=== PATIENT | male | born 1975 ===

== ENCOUNTER 2016-07-01 15:22 | Inpatient (IN) | payer MEDICAID ==
[~2016-07-01] VITALS: Ht 175.3 cm; Wt 105.7 kg
[2016-07-01 18:00] VITALS: BP 153/96
[2016-07-01] MEDS ORDERED: hydrOXYzine (VISTARIL) 25 MG CAP PO PRN (18:00)
[2016-07-01] MEDS: QUEtiapine 100 MG (SEROquel) TAB IMMEDIATE RELEASE PO SCH (19:30)
[2016-07-01] MEDS: traZODone 100 MG (DESYREL) TAB PO SCH (19:30)
[2016-07-01] MEDS: cloNIDine 0.1 MG (CATAPRES) TAB PO SCH (19:30)
[2016-07-02 05:23] VITALS: BP 109/69
[2016-07-02 05:40] LABS: BASOPHILS % (AUTO) 0 % (0-10); EOSINOPHILS # (AUTO) 0.3 10^3/uL (0.0-0.3); EOSINOPHILS % (AUTO) 4 % (0-10); LYMPHOCYTES # (AUTO) 1.7 X 10^3 (1.0-4.0); LYMPHOCYTES % (AUTO) 22 % (12-44); MEAN CORPUSCULAR HEMOGLOBIN 29 PG (25-34); MEAN CORPUSCULAR HGB CONC 34 G/DL (32-36); MEAN CORPUSCULAR VOLUME 86 FL (80-99); MONOCYTES % (AUTO) 13 % (0-12); NEUTROPHILS # (AUTO) 4.8 X 10^3 (1.8-7.8); NEUTROPHILS % (AUTO) 62 % (42-75); PLATELET COUNT 247 10^3/uL (130-400); RED BLOOD COUNT 4.98 10^6/uL (4.35-5.85); RED CELL DISTRIBUTION WIDTH 16.7 % (10.0-14.5); WHITE BLOOD COUNT 7.8 10^3/uL (4.3-11.0)
[2016-07-02 06:12] LABS: ALANINE AMINOTRANSFERASE 44 U/L (0-55); ALBUMIN 3.6 G/DL (3.2-4.5); ANION GAP 8 MMOL/L (5-14); ASPARTATE AMINO TRANSFERASE 21 U/L (5-34); BILIRUBIN,TOTAL 0.4 MG/DL (0.1-1.0); BLOOD UREA NITROGEN 11 MG/DL (7-18); BUN/CREATININE RATIO 10; CALCIUM 8.9 MG/DL (8.5-10.1); CARBON DIOXIDE 23 MMOL/L (21-32); CHLORIDE 110 MMOL/L (98-107); CREATININE SERUM 1.05 MG/DL (0.60-1.30); GFR ESTIMATED > 60; GLUCOSE 103 MG/DL (70-105); POTASSIUM 3.5 MMOL/L (3.6-5.0); SODIUM 141 MMOL/L (135-145); TOTAL PROTEIN 6.4 G/DL (6.4-8.2)
[2016-07-02] MEDS ORDERED: CLON0.1T PO (07:40)
[2016-07-02] MEDS ORDERED: METO50TA2 PO (07:41)
[2016-07-02] MEDS ORDERED: ORPH100T PO (07:42)
[2016-07-02] MEDS ORDERED: QUET50TA PO (07:44)
[2016-07-02] MEDS ORDERED: QUET100T PO (07:44)
[2016-07-02] MEDS ORDERED: TRAM50TA2 PO (07:45)
[2016-07-02] MEDS ORDERED: TRAZ100T92 PO (07:46)
[2016-07-02] MEDS ORDERED: HYDR50CA PO (07:47)
[2016-07-02] MEDS ORDERED: SERT100T PO (07:48)
[2016-07-02] MEDS: cloNIDine 0.1 MG (CATAPRES) TAB PO SCH ×3 (09:11→21:08)
[2016-07-02] MEDS: meTOprolol TARTRATE 50 MG (LOPRESSOR) TAB PO SCH (09:11)
[2016-07-02] MEDS: SERTRALINE 100 MG (ZOLOFT) TAB PO SCH (09:11)
--- NOTE | 2016-07-02 10:54 | HISTORY AND PHYSICAL ---
DATE OF ADMISSION: 07/01/2016 CHIEF COMPLAINT: Difficulty with walking. HISTORY OF PRESENT ILLNESS: The patient is a 40-year-old male who has been independent and living with family in [place], [place], who was admitted to [facility] due to acute respiratory failure, found to be secondary to ethanol intoxication. The patient underwent withdrawal protocol. Was weaned from O2 and became more alert. He is now referred to Inpatient Rehabilitation Unit at [facility] prior to discharge home with family due to decline in his functional independence. He also has complaints of right shoulder pain. An MRI revealed a partial rotator cuff tear. He was also noted to have hypokalemia and electrolyte disturbance and correction was provided. Hospitalist discussed the case with Dr. Smith today prior to transfer. Currently, the patient requires assistance for his ADLs and mobility skills. He is requesting pain medication for his right shoulder. PAST MEDICAL HISTORY: 1. Hypertension. 2. Ethanol abuse. PAST SURGICAL HISTORY: Noncontributory. ALLERGIES: No known medication allergies. FAMILY HISTORY: Noncontributory. SOCIAL HISTORY: Works intermittently, lives with family. History of ethanol abuse. REVIEW OF SYSTEMS: Ten-point review of system is significant for a limited endurance. Right shoulder pain. MEDICATIONS: 1. Lopressor 50 mg p.o. daily. 2. Zoloft 100 mg p.o. daily. 3. Catapres 0.1 mg p.o. t.i.d. 4. Seroquel 100 mg p.o. at bedtime. 5. MED p.o. at bedtime. 6. Motrin 800 mg p.o. q.6 h. p.r.n. pain. 7. Tramadol 50 mg p.o. q.6 hours p.r.n. moderate pain. 8. Vistaril 50 mg p.o. t.i.d. p.r.n. itch. PHYSICAL EXAMINATION: Significant for a middle aged patient appearing his stated age, lying in bed complaining of right shoulder pain in no acute distress. VITAL SIGNS: Blood pressure is 153/96. Respirations 18, pulse 62. He is afebrile. O2 sat 96% on room air. HEENT: Vision, speech, hearing, grossly intact hours. No oral lesion is noted. NECK: Supple without mass. HEART: Regular rhythm. LUNGS: Clear. ABDOMEN: Soft, nontender. Bowel sounds present. EXTREMITIES: No lower edema. No calf tenderness. MUSCULOSKELETAL: The patient has tenderness over the right shoulder with limited active range of motion past 6 degrees flexion and abduction. He has functional active range of motion otherwise, distal right upper extremity, both lower extremities and left upper extremity. NEUROLOGIC: Sensation is grossly intact to touch. Cognition appears grossly intact. Strength functional at 4+/5 other than right shoulder due to rotator cuff tear. He has impaired dynamic standing balance. IMPRESSION: 1. Ambulatory dysfunction secondary to ethanol intoxication associated with respiratory failure requiring ventilation, ventilator short-term now, improving. 2. Partial tear right shoulder rotator cuff. 3. Hypokalemia, treated. 4. Hypertension, controlled with medication. PLAN: The patient will have a comprehensive program of inpatient rehabilitation with goal of maximizing level of functional dependence prior to discharge home with family. The patient will have PT/OT 90 minutes per day, each discipline, for gait strengthening, conditioning, ADLs, any patient/family/caregiver training necessary, balance training, modalities as needed for pain. Speech therapy do cognitive assessment and treat as indicated. It appears his encephalopathy from his ethanol withdrawal has fairly largely resolved. Rehabilitation nursing assist with bowel, bladder, skin care, medication administration, pain management. director of tax services to assist with discharge planning, community reentry. We will consult Dr. Peacock to assist with medical management of this out of town patient. Check labs in a.m. and follow-up with his PCP upon discharge; he apparently has [place] Medicaid. ESTIMATED LENGTH OF STAY: Two weeks. PROGNOSIS: Rehab prognosis appears good for goal of discharging home with family modified independent to supervision for ADLs and mobility skills. He will most likely need to have outpatient, follow-up regarding his right rotator cuff with orthopedics. DIET: Regular. CODE STATUS: Full code. POST ADMISSION PHYSICIAN ASSESSMENT: The preadmission screen agrees with the post admission assessment. The patient is a good candidate for inpatient rehabilitation. He appears to be well motivated to participate in 3 hours of therapy a day. He should be able tolerate 3 hours of therapy a day from a medical from a medical and orthopedic standpoint. He should benefit from 3 hours of therapy a day. He has a reasonable discharge plan, reasonable discharge rehabilitation goals and a supportive family. He has various comorbidities that need to be closely monitored with medications and treatments adjusted on a daily basis. He has various comorbidities that are his hypertension and pain management. Barriers to discharge for this patient who had been independent prior to this are for him to be modified independent to supervision for ADLs and mobility skills prior to discharge home with family so as to lessen the burden of the caregivers. Risks for this patient include: 1. Worsening pain. 2. Worsening rotator cuff tear. 3. Poorly controlled hypertension. 4. Fall. 5. Fracture. 6. DVT. 7. Pulmonary embolism. 8. Urinary retention. 9. UTI. 10. Respiratory infection. 11. Aspiration. We will utilize SCDs for DVT prophylaxis. Job ID: [id number] Dictated Date: 07/01/2016 19:21:06 Stamping Die Maker Date: 07/02/2016 10:39:22/kirsty LEE
--- NOTE | 2016-07-02 11:44 | Physical Therapy Evaluation ---
PT Evaluation-General Medical Diagnosis Admission Date Jul 01, 2016 at 17:17 Medical Diagnosis: difficulty with walking Onset Date: Jul 01, 2016 Therapy Diagnosis Therapy Diagnosis: impaired strength, balance, endurance Height/Weight Height (Feet): 5 Height (Inches): 9.00 Weight (Pounds): 230 Weight (Ounces): 8.0 Precautions Precautions/Isolations: Fall Prevention, Standard Precautions Referral Physician: Luis Reason for Referral: Evaluation/Treatment Medical History Pertinent Medical History: Alcoholism, HTN Additional Medical History MRI revealed a partial rotator cuff tear on the right side Current History Admitted to [facility] with acute respiratory failure due to alcohol intoxication. Reviewed History: Yes Social History Home: Single Level Current Living Status: Other Family Entry Into Home: Stairs With Railing PT Steps Into Home: 8 only one railing Prior/Core FIM Prior Level of Function Functional Gillespie Measure 0=Not Assessed/NA 4=Minimal Assistance 1=Total Assistance 5=Supervision or Setup 2=Maximal Assistance 6=Modified Gillespie 3=Moderate Assistance 7=Complete Gillespie Bed Mobility: 7 Transfers (B,C,W/C) (FIM): 7 Gait: 7 PT Evaluation-Current Subjective Patient in bathroom pre tx, agrees to PT when he is done. States he has pain of 8/10 in right shoulder, MRI shows he has a partial rotator cuff tear. Pt/Family Goals to get stronger and be able to go home Objective Patient Orientation: Person, Place, Situation ROM/Strength ROM Lower Extremities WNL Strenght Lower Extremities 4+/5 gross bilateral lower extremities Integumentary/Posture Bowel Incontinence: No Bladder Incontinence: No Neuromuscular (Tone, Coordination, Reflexes) WNL Sensory Vision: Functional Hearing: Functional Sensation Right Lower Extremit: Intact Sensation Left Lower Extremity: Intact Transfers Functional Gillespie Measure 0=Not Assessed/NA 4=Minimal Assistance 1=Total Assistance 5=Supervision or Setup 2=Maximal Assistance 6=Modified Gillespie 3=Moderate Assistance 7=Complete IndependenceIRFPAI Quality Coding Scale 6 Independent with activity with or without an assistive device 5 Patient requires set up or clean up by helper. Patient completes activity by themselves 4 Supervision or touching assist (CGA). Regina provide cues , steadying assist 3 The helper provides less than half the effort to complete the activity 2 The helper provides more than half the effort to complete the activity 1 Dependent. The helper does all the effort to complete an activity 7 Patient refused to complete or attempt activity 9 The patient did not perform the activity before the current illness or injury 88 Not attempted due to Medical conditions or safety concerns Transfers (B, C, W/C) (FIM): 5 Scootin Rollin Roll Left to Right (QC): 6 Supine to/from Sit: 6 Sit to/from Stand: 5 Sit to Lying (QC): 6 Lying to Sitting/Side of Bed(Q: 6 Sit to Stand (QC): 4 Car Transfer (QC): 88 Close supervision, he is unsteady but no LOB. Able to perform bed mobility with mod I and sit to stand and transfers with SBA Gait Does the Patient Walk?: Yes Mode of Locomotion: Walk Anticipated Mode of Locomotion: Walk Gait (FIM): 5 Walk 10 feet (QC): 4 Walk 50 ft with 2 Turns(QC): 4 Walk 150 ft (QC): 4 Walking 10ft/uneven surface-QC: 4 Distance: 500', 100' Gait Level of Assist: 5 Gait Persons Needed: 1 Gait Assistive Device: None Comments/Gait Description Patient needs close supervision, had one standing rest break. Could not ambulate as far after tx. Fatigued quickly. Has moments of unsteadiness but no ashley LOB. Able to ambulate 10' over an uneven surface like carpet with SBA and 50' with at least 2 turns of 90 degrees. Wheelchair Training Does the Pt Use a Wheelchair?: No Stairs Stairs (FIM): 2 #of Steps: 4 Level of Assist: 4 1 Step (curb) (QC): 4 4 Steps (QC): 4 12 Steps (QC): 88 Patient is unsteady but no LOB. He seemed pretty anxious on the stairs, required close guarding. Balance Sitting Static: Normal Sitting Dynamic: Normal Standing Static: Fair Standing Dynamic: Fair Picking up an Object (QC): 4 Treatment Nguyen Balance Scale Score 41/56, indicated he is at risk for a fall and needs an assistive device. He declines the use of a cane or walker. Assessment/Needs Patient has impairments in strength, balance, and endurance. He is at risk for a fall. He seems slow to respond and often a little confused. 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 Time Frame: Jul 23, 2016 Transfers (B,C,W/C) (FIM): 6 Sit to Lying (QC): 6 Lying-Sitting on Side/Bed(QC): 6 Sit to Stand (QC): 6 Rollin Roll Left to Right (QC): 6 Car Transfer (QC): 4 Does the Patient Walk: Yes Gait (FIM): 6 Distance: 600' Walk 10 feet (QC): 6 Walk 10ft-Uneven Surface(QC): 6 Walk 50ft with 2 Turns (QC): 6 Walk 150 ft (QC): 6 Gait Assistive Device: Cane Single Point Stairs (FIM): 5 # of Steps: 12 1 Step (curb) (QC): 4 4 Steps (QC): 4 12 Steps (QC): 4 Stairs Level Of Assist: 5 Picking up an Object (QC): 4 PT Plan Problem List Problem List: Activity Tolerance, Functional Strength, Safety, Balance, Gait, Transfer Treatment/Plan Treatment Plan: Continue Plan of Care Treatment Plan: Bed Mobility, Education, Functional Activity Claudy, Functional Strength, Group Therapy, Gait, Safety, Therapeutic Exercise, Transfers Treatment Duration: Jul 23, 2016 # of days/week 5-6 Visits Per Week: 10-11 Minutes/Day (M-F): 60-90 Minutes/Day (Sat/Marie): 15-30 Pt/Family Agrees w/Plan: Yes Safety Risks/Education Patient Education: Gait Training, Transfer Techniques, Steps, Safety Issues Teaching Recipient: Patient Teaching Methods: Demonstration, Discussion Response to Teaching: Reinforcement Needed Discharge Recommendations Plan Patient will perform bed mobility and transfer training, balance and endurance training, functional strengthening, stair training, gait training, education, to improve functional mobility and independence at home. Therapy D/C Recommendations: Home w/ Family Support Time/GCodes Time In: 1100 Time Out: 1145 Total Billed Treatment Time: 45 Total Billed Treatment 1 visit EVL 15 min NM 15 min GT 15 min MATTHEW EUGENE PT Jul 02, 2016 11:44
--- NOTE | 2016-07-02 13:00 | Occupational Therapy Eval ---
OT Evaluation-General/PLF Medical Diagnosis Admission Date Jul 01, 2016 at 17:17 Medical Diagnosis: difficulty with walking Onset Date: Jul 01, 2016 Therapy Diagnosis Therapy Diagnosis: decreased self care skills Height/Weight Height (Feet): 5 Height (Inches): 9.00 Weight (Pounds): 230 Weight (Ounces): 8.0 Precautions Precautions/Isolations: Fall Prevention, Standard Precautions Safety Interventions: None Referral Physician: Luis Medical History Pertinent Medical History: Alcoholism, HTN Reviewed History: Yes Social History Home: Single Level Current Living Status: Other Family (Pt states he will be staying with mother at d/c) Entry Into Home: Stairs With Railing Steps Into Home: 8 ADL-Prior Level of Function DME/Equipment: Shower Drive Self: No OT Current Status Subjective Pt in bed, agrees to therapy. Pt reports 8/10 pain in right shoulder Mental Status/Objective Patient Orientation: Person, Place, Time (able to state day, month, and year) Current Glasses/Contacts: No Hearing Aids: No Dentures/Partials: No Hand Dominance: Right Upper Extremity ROM Pt has decreased shoulder ROM on right secondary to rotator cuff injury. Remainder WFL. Upper Extremity Coordination Intact Upper Extremity Sensation Intact per pt report. ADL-Treatment ADL-Current Pt supine to sit with supervision. Agrees to shower. Sit to stand with SBA. Pt declined to use FWW for mobility. Gait to restroom with supervision. Transfer to walk in shower with SBA using grab bars for balance and safety. Seated bathing completed using hand held shower. Pt able to wash all areas with SBA, but had one mild LOB when drying foot, requiring CGA to correct. Don pullover shirt with set up. Pt donned underwear and pants with supervision for balance. Donned socks and slip on shoes with set up. Pt demonstrated ability to perform toilet transfer with SBA. Stood at sink for grooming with SBA. Combed hair and brushed teeth with SBA. Pt in bed with needs met after session. Functional [place] Measure 0=Not Assessed/NA 4=Minimal Assistance 1=Total Assistance 5=Supervision or Setup 2=Maximal Assistance 6=Modified [place] 3=Moderate Assistance 7=Complete IndependenceIRFPAI Quality Coding Scale 6 Independent with activity with or without an assistive device 5 Patient requires set up or clean up by helper. Patient completes activity by themselves 4 Supervision or touching assist (CGA). [place] provide cues , steadying assist 3 The helper provides less than half the effort to complete the activity 2 The helper provides more than half the effort to complete the activity 1 Dependent. The helper does all the effort to complete an activity 7 Patient refused to complete or attempt activity 9 The patient did not perform the activity before the current illness or injury 88 Not attempted due to Medical conditions or safety concerns Grooming (FIM): 5 Oral Hygiene (QC): 4 Bathing (FIM): 4 (CGA when drying foot) Shower/Bathe Self (QC): 4 (CGA) Upper Body Dressing (FIM): 5 Upper Body Dressing (QC): 5 Lower Body Dressing (FIM): 5 Lower Body Dressing (QC): 4 On/Off Footwear (QC): 5 Toilet/Commode Transfer (FIM): 5 Toilet Transfer (QC): 4 Shower Transfer (FIM): 5 OT Short Term Goals Short Term Goals 1=Demonstrate adherence to instructed precautions during ADL tasks. 2=Patient will verbalize/demonstrate understanding of assistive devices/ modifications for ADL. 3=Patient will improve strength/tolerance for activity to enable patient to perform ADL's. OT Mcfp Goals Mcfp Goals Time Frame: Jul 23, 2016 Eating (FIM): 6 Eating (QC): 6 Oral Hygiene (QC): 6 Grooming(FIM): 6 Bathing(FIM): 6 Shower/Bathe Self (QC): 6 Upper Body Dressing(FIM): 6 Upper Body Dressing (QC): 6 Lower Body Dressing(FIM): 6 Lower Body Dressing (QC): 6 On/Off Footwear (QC): 6 Toileting(FIM): 6 Toileting Hygiene (QC): 6 Toilet/Commode Transfer(FIM): 6 Toilet/Commode Transfer (QC): 6 Shower Transfer(FIM): 6 Additional Goals: 1-Demonstrate ADL Tasks, 2-Verbalize Understanding, 3- ImproveStrength/Claudy 1=Demonstrate adherence to instructed precautions during ADL tasks. 2=Patient will verbalize/demonstrate understanding of assistive devices/ modifications for ADL. 3=Patient will improve strength/tolerance for activity to enable patient to perform ADL's. Goals established to promote increased functional performance and allow safe return home. OT Education/Plan Problem List/Assessment Assessment: Decreased Activ Tolerance, Decreased UE Strength, Dependent Transfers, Impaired Funct Balance, Impaired Self-Care Skills Pt demonstrates mildly decreased mobility, strength, and activity tolerance. Pt to benefit from skilled OT intervention for ADL training, transfers, strengthening, and home safety education to maximize level of independence and allow safe discharge. Discharge Recommendations Plan/Recommendations: Continue POC Treatment Plan/Plan of Care Treatment,Training & Education: Yes Patient would benefit from OT for education, treatment and training to promote independence in ADL's, mobility, safety and/or upper extremity function for ADL' s. Plan of Care: ADL Retraining, Functional Mobility, Group Exercise/Act as Ind, UE Funct Exercise/Act, UE Neuromus Re-Ed/Coord Treatment Duration: Jul 23, 2016 # of days/week 5-6 Minutes/Day (M-F): 60-90 Minutes/Day (Sat/Marie): PRN Agreement: Yes Rehab Potential: Fair Time/GCodes Start Time: 14:17 Stop Time: 14:53 Total Time Billed (hr/min): 36 Billed Treatment Time 1 visit, EVL(15minutes), ADLx3(45minutes) ELENA LAU OT Jul 02, 2016 13:00
--- NOTE | 2016-07-02 13:42 | PM & R (SOAP) Progress Note ---
Subjective Subjective/Events-last exam Patient was seen in his room this afternoon patient c/o poorly controlled Rt Shoulder pain Will add Voltaran gel and Lortab See orders.Patient SBA for transfers. Objective Exam Last Set of Vital Signs Vital Signs Date Time Temp Pulse Resp B/P Pulse Ox O2 Delivery O2 Flow Rate FiO2 07/02/16 09:00 Room Air 07/02/16 05:23 97.7 53 18 109/69 96 Capillary Refill : I&O Bad tableGeneral: Alert, Oriented X3, Cooperative, No Acute Distress HEENT: Atraumatic, PERRLA, EOMI, Mucous Memb Moist/Blanket Neck: Supple, No JVD Lungs: Clear to Auscultation Heart: Regular Rate Abdomen: Normal Bowel Sounds, Soft, No Tenderness Extremities: No Edema Neuro: Other (Tender rt shoulder with Limited AROM in flex and abdustion) Results Lab Laboratory Tests 07/02/16 05:20: Alanine Aminotransferase (ALT/SGPT) 44, Albumin 3.6, Alkaline Phosphatase 67, Anion Gap 8, Aspartate Amino Transf (AST/SGOT) 21, BUN/Creatinine Ratio 10, Basophils # (Auto) 0.0, Basophils (%) (Auto) 0, Blood Urea Nitrogen 11, Calcium Level 8.9, Carbon Dioxide Level 23, Chloride Level 110H, Creatinine 1.05, Eosinophils # (Auto) 0.3, Eosinophils (%) (Auto) 4, Estimat Glomerular Filtration Rate > 60, Glucose Level 103, Hematocrit 43, Hemoglobin 14.5, Lymphocytes # (Auto) 1.7, Lymphocytes (%) (Auto) 22, Mean Corpuscular Hemoglobin 29, Mean Corpuscular Hemoglobin Concent 34, Mean Corpuscular Volume 86, Mean Platelet Volume 10.0, Monocytes # (Auto) 1.0, Monocytes (%) (Auto) 13H , Neutrophils # (Auto) 4.8, Neutrophils (%) (Auto) 62, Platelet Count 247, Potassium Level 3.5L, Red Blood Count 4.98, Red Cell Distribution Width 16.7H, Sodium Level 141, Total Bilirubin 0.4, Total Protein 6.4, White Blood Count 7.8 Assessment/Plan Assessment General debil secondary to encephalopathy related ETOH intoxication. RT Rotator cuff tear Plan Continue PT/OT Pain Management-see orders Team Conference tomorrow [facility] consult-see orders EDUARDO TOM MD Jul 02, 2016 13:42
[2016-07-02] MEDS: HYDROcodone/APAP 10 MG/325 MG (LORTAB) TAB PO PRN ×3 (13:53→23:06)
[2016-07-02] MEDS ORDERED: KCL 20 MEQ TAB (K-DUR) PO NR (14:30)
--- NOTE | 2016-07-02 14:52 | ST Cognitive Linguistic Eval ---
Speech Evaluation-General Medical Diagnosis Acute Encephalopathy Onset Date: Jul 01, 2016 Therapy Diagnosis Therapy Diagnosis: Mild Cognitive Impairment Precautions Precautions/Isolations: Fall Prevention, Standard Precautions Referral Referring Physician: Dr. Manuel Smith Reason for Referral: Evaluation/Treatment Cognitive Screen Medical History Pertinent Medical History: Alcoholism, HTN Reviewed History: Yes Social History Current Living Status: Other Family (Pt states he will be staying with mother at d/c) Speech PLF-Current Status Prior Level of Function The patient reported "memory problems" directly following his hospitalization, however, reported a recent return to baseline function. The patient denied additional speech, language, or cognition challenges. Subjective The patient was recently admitted to [facility] following acute encephalopathy. The patient greeted the clinician appropriately and agreed to participate in the cognitive evaluation on this date. To note, the patient demonstrates a consistent flat affect. Language Eval: Auditory Comprehends Simple Yes/No Ques: Mild Indent/Objects Multiple Herrmann: Functional Ident/Pics in Multiple Herrmann: Functional Follows 1-Step Commands: Functional Follows Complex Directions: Mild Follows General Conversations: Mild (The patient demonstrated a mild to moderate reponse delay to simple questions.) Language Eval: Verbal Language Completes Spontaneous Greeting: Functional Produces Auto, Serial Info: Functional Imitates Simple Words/Phrases: Functional Word Finding: Functional Requests Basic Needs: Functional States Basic Personal Info: Mild Expresses Complex Ideas: Mild Cognitive Patient Orientation The patient was oriented to self, location, day of week, month, and date. Objective Cognitive Domain Attention: Mild Memory: Mild Problem Solving: Mild Executive Functions: Mild Objective Formal/Standardized Tests Schuyler Cognitive Assessment (MoCA) Version One: The patient demonstrated a score of +19/22 correlating to a mild cognitive impairment. Impression Ashley Cognitive Assessment (MoCA) Version One: The patient demonstrated a score of +19/22 correlating to a mild cognitive impairment. The patient demonstrated deficits in auditory comprehension, memory, attention, and problem solving. Communication/Social Cognition Comprehension: 4 Expression: 5 Social Interaction: 5 Problem Solvin Memory: 4 Speech Patient Assess Expression of Ideas/Wants: Exhibits (3) Understanding Vebal Content: Usually Understands (3) Brief Interview-Mental Status: Yes Repetition of Three Words: Three (3) Temporal Orientation: Year: Correct (3) Temporal Orientation: Month: Accurate within 5 days(2) Temporal Orientation: Day: Correct (1) Recall : Wear to say "Sock": Yes, no cue required (2) Recall : Color: Yes, no cue required (2) Recall : Bed: Yes, no cue required (2) Speech Short Term Goals Short Term Goals Short Term Goals 1. The patient will demonstrate 90% accuracy with safety problem solving, independently. 2. The patient will demonstrate and recall three functional memory strategies for use at home. Time Frame-STG: Two Weeks Speech Penitentiary Goals Penitentiary Goals 1. The patient will demonstrate improved cognition for increased function and safety with ADL's in the least restrictive setting. Time Frame: Three Weeks Comprehension: 5 Expression: 5 Social Interaction: 5 Problem Solvin Memory: 5 Speech-Plan Treatment Plan Speech Therapy Treatment Plan: Continue Plan of Care Skilled cognitive therapy to focus on functional memory strategies and problem solving. Treatment Duration: Jul 23, 2016 # of days/week Three Visits Per Week: Three Rehab Potential: Fair Safety Risks/Education Teaching Recipient: Patient Teaching Methods: Discussion Response to Teaching: Verbalize Understanding, Reinforcement Needed Education Topics Provided: Plan of Care Time Speech Therapy Time In: 10:45 Speech Therapy Time Out: 11:00 Total Billed Time: 15 Billed Treatment Time 1, AKSHAT MCDOWELL Jul 02, 2016 14:52
--- NOTE | 2016-07-02 15:19 | Occupational Ther Daily Note ---
OT Current Status-Daily Note Subjective Pt alert, lying in bed. Pt agreed to therapy. No c/o pain. Mental Status/Objective Patient Orientation: Person, Place, Time, Situation Functional [place] Measure 0=Not Assessed/NA 4=Minimal Assistance 1=Total Assistance 5=Supervision or Setup 2=Maximal Assistance 6=Modified [place] 3=Moderate Assistance 7=Complete [place] ADL-Treatment Functional [place] Measure 0=Not Assessed/NA 4=Minimal Assistance 1=Total Assistance 5=Supervision or Setup 2=Maximal Assistance 6=Modified [place] 3=Moderate Assistance 7=Complete IndependenceIRFPAI Quality Coding Scale 6 Independent with activity with or without an assistive device 5 Patient requires set up or clean up by helper. Patient completes activity by themselves 4 Supervision or touching assist (CGA). [place] provide cues , steadying assist 3 The helper provides less than half the effort to complete the activity 2 The helper provides more than half the effort to complete the activity 1 Dependent. The helper does all the effort to complete an activity 7 Patient refused to complete or attempt activity 9 The patient did not perform the activity before the current illness or injury 88 Not attempted due to Medical conditions or safety concerns Other Treatment Pt was able to go from supine to sitting EOB by self using bed rails. Pt ambulated with CGA to therapy gym. Pt completed arm bike 15 min at 3 crowder resistance for strength and activity tolerance for daily functional tasks. Pt did c/o pain with R shldr movement on arm bike. Pt had a difficulty time to rotated the arm bike fast enough to keep the clock moving. OT showed pt RPMs and instructed pt to keep it at 20 RPMs to keep the clock going, pt was able to complete without breaks. Pt then completed fine motor tasks to strengthen hands and fingers without difficulty. Pt ambulated back to room with SBA. After therapy, pt sitting in recliner with call light/phone in reach. All needs met in room. OT Short Term Goals Short Term Goals 1=Demonstrate adherence to instructed precautions during ADL tasks. 2=Patient will verbalize/demonstrate understanding of assistive devices/ modifications for ADL. 3=Patient will improve strength/tolerance for activity to enable patient to perform ADL's. OT Shelter Goals Line Patrolman Goals Time Frame: Jul 23, 2016 Eating (FIM): 6 Eating (QC): 6 Oral Hygiene (QC): 6 Grooming(FIM): 6 Bathing(FIM): 6 Shower/Bathe Self (QC): 6 Upper Body Dressing(FIM): 6 Upper Body Dressing (QC): 6 Lower Body Dressing(FIM): 6 Lower Body Dressing (QC): 6 On/Off Footwear (QC): 6 Toileting(FIM): 6 Toileting Hygiene (QC): 6 Toilet/Commode Transfer(FIM): 6 Toilet/Commode Transfer (QC): 6 Shower Transfer(FIM): 6 Comprehension(FIM): 5 Expression (FIM): 5 Social Interaction(FIM): 5 Problem Solving(FIM): 5 Memory(FIM): 5 Additional Goals: 1-Demonstrate ADL Tasks, 2-Verbalize Understanding, 3- ImproveStrength/Claudy 1=Demonstrate adherence to instructed precautions during ADL tasks. 2=Patient will verbalize/demonstrate understanding of assistive devices/ modifications for ADL. 3=Patient will improve strength/tolerance for activity to enable patient to perform ADL's. OT Education/Plan Problem List/Assessment Pt demonstrates mildly decreased mobility, strength, and activity tolerance. Pt to benefit from skilled OT intervention for ADL training, transfers, strengthening, and home safety education to maximize level of independence and allow safe discharge. Discharge Recommendations Plan/Recommendations: Continue POC Treatment Plan/Plan of Care Patient would benefit from OT for education, treatment and training to promote independence in ADL's, mobility, safety and/or upper extremity function for ADL' s. Plan of Care: ADL Retraining, Functional Mobility, Group Exercise/Act as Ind, UE Funct Exercise/Act, UE Neuromus Re-Ed/Coord Treatment Duration: Jul 23, 2016 Minutes/Day (M-F): 60-90 Minutes/Day (Sat/Amrie): PRN Agreement: Yes Rehab Potential: Fair Time/GCodes Start Time: 13:00 Stop Time: 13:30 Total Time Billed (hr/min): 30 Billed Treatment Time 1 visit-EX 2 (30 min) REYNA TORREZ Jul 02, 2016 15:19
--- NOTE | 2016-07-02 15:45 | Physical Therapy Daily Note ---
PT Daily Note-Current Subjective Patient in bed pre tx, agrees to PT, pleasant and cooperative. Pain Numeric Pain Scale: 6 Location: Right Location Body Site: Shoulder Appearance Patient sitting EOB post tx, has nurse call, phone, tray, all needs met. Mental Status Patient Orientation: Normal For Age Transfers Functional [place] Measure 0=Not Assessed/NA 4=Minimal Assistance 1=Total Assistance 5=Supervision or Setup 2=Maximal Assistance 6=Modified [place] 3=Moderate Assistance 7=Complete IndependenceIRFPAI Quality Coding Scale 6 Independent with activity with or without an assistive device 5 Patient requires set up or clean up by helper. Patient completes activity by themselves 4 Supervision or touching assist (CGA). [place] provide cues , steadying assist 3 The helper provides less than half the effort to complete the activity 2 The helper provides more than half the effort to complete the activity 1 Dependent. The helper does all the effort to complete an activity 7 Patient refused to complete or attempt activity 9 The patient did not perform the activity before the current illness or injury 88 Not attempted due to Medical conditions or safety concerns Transfers (B, C, W/C) (FIM): 5 Sit to/from Stand: 5 no LOB Gait Training Gait (FIM): 5 Distance: 600', 1200' Gait Level of Assist: 5 Gait Persons Needed: 1 Gait Assistive Device: None occasional moments of unsteadiness but no LOB Exercises NuStep Minutes: 15 NuStep Workload: 5 Neuromuscular tandem walking, sidestepping, backwards walking Assessment Current Status: Fair Progress patient seems more steady this afternoon, better balance PT Short Term Goals Short Term Goals Time Frame: Jul 09, 2016 Gait (FIM): 5 Gait Distance Comment: 600' Gait Level of Assist: 5 Gait Assistive Device: Cane Single Point Stairs (FIM): 2 # of Steps: 4 Stairs Level of Assist: 5 PT Intermediate Goals Summer Counselor Goals PT Intermediate Goals Time Frame: Jul 23, 2016 Transfers (B,C,W/C) (FIM): 6 Sit to Lying (QC): 6 Lying-Sitting on Side/Bed(QC): 6 Sit to Stand (QC): 6 Rollin Roll Left to Right (QC): 6 Car Transfer (QC): 4 Does the Patient Walk: Yes Gait (FIM): 6 Distance: 600' Walk 10 feet (QC): 6 Walk 10ft-Uneven Surface(QC): 6 Walk 50ft with 2 Turns (QC): 6 Walk 150 ft (QC): 6 Gait Assistive Device: Cane Single Point Stairs (FIM): 5 # of Steps: 12 1 Step (curb) (QC): 4 4 Steps (QC): 4 12 Steps (QC): 4 Stairs Level Of Assist: 5 Picking up an Object (QC): 4 PT Plan Problem List Problem List: Activity Tolerance, Functional Strength, Safety, Balance, Gait, Transfer Treatment/Plan Treatment Plan: Continue Plan of Care Treatment Plan: Bed Mobility, Education, Functional Activity Claudy, Functional Strength, Group Therapy, Gait, Safety, Therapeutic Exercise, Transfers Treatment Duration: Jul 23, 2016 Visits Per Week: 10-11 Minutes/Day (M-F): 60-90 Minutes/Day (Sat/Marie): 15-30 Safety Risks/Education Patient Education: Gait Training, Transfer Techniques, Safety Issues Teaching Recipient: Patient Teaching Methods: Demonstration, Discussion Response to Teaching: Reinforcement Needed Time/GCodes Time In: 1500 Time Out: 1545 Total Billed Treatment Time: 45 Total Billed Treatment 1 visit GT 15 min EX 15 min NM 15 min MATTHEW EUGENE PT Jul 02, 2016 15:44
[2016-07-02] MEDS: DICLOFENAC 1% GEL 100 GM (VOLTAREN) TUBE TOP SCH ×2 (17:47→20:22)
[2016-07-02 18:17] VITALS: BP 135/87
--- NOTE | 2016-07-02 19:24 | Consultation ---
History of Present Illness History of Present Illness Patient Consulted On(casimiro/time) 07/02/16 19:19 Date of Admission History of Present Illness patient came to rehabilitation from [facility] in [place]. Patient had an ethanol intoxication. History of depression. History of homelessness. Right shoulder pain. Tobacco usage. Alcohol poisoning. Acute encephalopathy. Elevated liver enzymes. Acute respiratory failure with hypoxemia and hypercapnia. Sepsis. Aspiration pneumonia. Family history father diabetic and heart disease. Allergies and Home Medications Allergies Coded Allergies: No Known Allergies (Verified Allergy, Unknown, 07/01/16) Home Medications Clonidine HCl 0.1 Mg Tablet 0.1 MG PO TID (Reported) Hydroxyzine Pamoate 50 Mg Capsule 50 MG PO TID (Reported) Metoprolol Tartrate 50 Mg Tablet 50 MG PO DAILY (Reported) Orphenadrine Citrate 100 Mg Tablet.er 100 MG PO BID (Reported) Quetiapine Fumarate 50 Mg Tablet 50 MG PO HS (Reported) Quetiapine Fumarate 100 Mg Tablet 100 MG PO HS (Reported) Sertraline HCl 100 Mg Tablet 100 MG PO DAILY (Reported) Tramadol HCl 50 Mg Tablet 50 MG PO Q6H (Reported) Trazodone HCl 100 Mg Tablet 100 MG PO HS (Reported) Past Nmgjssr-[id number]-Jgmfkc Hx Patient Social History Alcohol Use: Regular Use Recreational Drug Use: No Smoking Status: Current Everyday Smoker Type Used: Cigarettes Recent Foreign Travel: No Contact w/Someone Who Travel: No Recent Infectious Disease Expo: No Recent Hopitalizations: Yes Physical Abuse Screen: No Sexual Abuse: No Immunizations Up To Date Date of Influenza Vaccine: Jun 30, 2016 Seasonal Allergies Seasonal Allergies: No Surgeries Surgeries: Orthopedic Cardiovascular Cardiac Disorders: Hypertension Psychosocial Behavioral Health Disorders: Anxiety Blood Transfusions Adverse Reaction to a Blood Tr: No Family Medical History Family Medial History: Patient reports no known family medical history. Review of Systems-General Constitutional: weakness EENTM: no symptoms reported Respiratory: no symptoms reported Cardiovascular: other (hypertension) Gastrointestinal: no symptoms reported Genitourinary: no symptoms reported Physical Exam-General Problems Physical Exam Vital Signs Vital Sign - Last 12Hours 07/01/16 18:00 Temp 98.1 Pulse 62 Resp 18 B/P 153/96 Pulse Ox 96 O2 Delivery Room Air Capillary Refill : General Appearance: WD/WN no apparent distress Eyes: Bilateral Eye Normal Inspection HEENT: normal ENT inspection Neck: full range of motion normal inspection Respiratory: chest non-tender lungs clear normal breath sounds no respiratory distress no accessory muscle use Cardiovascular: regular rate, rhythm no murmur Assessment/Plan Assessment/Plan Admission Diagnosis/Plan alcohol poisoning. Acute encephalopathy. Elevated liver enzymes. Acute respiratory failure with hypoxemia and hypercapnia. Sepsis. Aspiration pneumonia. History of depression. Right shoulder pain Clinical Quality Measures DVT/VTE Risk/Contraindication: Risk Factor Score Per Nursin RFS Level Per Nursing on Admit: 1=Low/No VTE PPX CORDELL ZAVALA DO Jul 02, 2016 19:24
[2016-07-02 21:05] VITALS: BP 124/71
[2016-07-02] MEDS: ORPHENADRINE 100 MG PO SCH (21:07)
[2016-07-02] MEDS: QUEtiapine 100 MG (SEROquel) TAB IMMEDIATE RELEASE PO SCH (21:08)
[2016-07-02] MEDS: traZODone 100 MG (DESYREL) TAB PO SCH (21:08)
[2016-07-03] MEDS: HYDROcodone/APAP 10 MG/325 MG (LORTAB) TAB PO PRN ×4 (04:43→21:01)
[2016-07-03 06:00] VITALS: BP 90/56
--- NOTE | 2016-07-03 08:26 | Progress Note (SOAP) ---
Subjective Subjective/Events-last exam patient states she's feeling better today. Patient was able to do the physical therapy and occupational therapy yesterday. Patient's right shoulder hurts Objective Exam Vital Signs Date Time Temp Pulse Resp B/P Pulse Ox O2 Delivery O2 Flow Rate FiO2 07/03/16 06:00 97.6 55 16 90/56 95 Room Air 07/02/16 21:05 66 124/71 07/02/16 21:00 Room Air 07/02/16 18:17 97.8 62 16 135/87 96 07/02/16 09:00 Room Air I & O 07/03/16 07:00 Intake Total 1880 ml Balance 1880 ml Capillary Refill : General Appearance: No Apparent Distress WD/WN HEENT: Normal ENT Inspection Neck: Normal Inspection Respiratory: Chest Non Tender Lungs Clear Normal Breath Sounds No Accessory Muscle Use No Respiratory Distress Assessment/Plan Assessment/Plan Assess & Plan/Chief Complaint alcohol poisoning. Acute encephalopathy. Elevated liver enzymes. Acute respiratory failure with hypoxemia and hypercapnia. Sepsis. Aspiration pneumonia. History of depression. Right shoulder pain. . . Alcohol poisoning. Acute encephalopathy. Elevated liver enzymes resolved. Acute respiratory failure resolved. Hypoxemia resolved Diagnosis/Problems: Clinical Quality Measures DVT/VTE Risk/Contraindication: Risk Factor Score Per Nursin RFS Level Per Nursing on Admit: 1=Low/No VTE PPX CORDELL ZAVALA DO Jul 03, 2016 08:26
[2016-07-03] MEDS: meTOprolol TARTRATE 50 MG (LOPRESSOR) TAB PO SCH (08:54)
[2016-07-03] MEDS: cloNIDine 0.1 MG (CATAPRES) TAB PO SCH ×3 (08:54→21:01)
[2016-07-03] MEDS: SERTRALINE 100 MG (ZOLOFT) TAB PO SCH (08:55)
[2016-07-03] MEDS: IBUPROFEN 800 MG (MOTRIN) TAB PO PRN (08:55)
--- NOTE | 2016-07-03 08:55 | Occupational Ther Daily Note ---
OT Current Status-Daily Note Subjective Pt alert, lying in bed. Pt agreed to therapy. Declined taking shower. Pt requested pain pill, OT reported to nrsg. Mental Status/Objective Patient Orientation: Person, Place, Time, Situation Functional [place] Measure 0=Not Assessed/NA 4=Minimal Assistance 1=Total Assistance 5=Supervision or Setup 2=Maximal Assistance 6=Modified [place] 3=Moderate Assistance 7=Complete [place] ADL-Treatment Functional [place] Measure 0=Not Assessed/NA 4=Minimal Assistance 1=Total Assistance 5=Supervision or Setup 2=Maximal Assistance 6=Modified [place] 3=Moderate Assistance 7=Complete IndependenceIRFPAI Quality Coding Scale 6 Independent with activity with or without an assistive device 5 Patient requires set up or clean up by helper. Patient completes activity by themselves 4 Supervision or touching assist (CGA). [place] provide cues , steadying assist 3 The helper provides less than half the effort to complete the activity 2 The helper provides more than half the effort to complete the activity 1 Dependent. The helper does all the effort to complete an activity 7 Patient refused to complete or attempt activity 9 The patient did not perform the activity before the current illness or injury 88 Not attempted due to Medical conditions or safety concerns Other Treatment Pt completes own ADLs. Pt's R shldr has rotator cuff tear and pain with movement above 90*. Supervision with transfers. Pt completed arm bike 15 min at 5 crowder resistance to increase strength and AROM for daily functional tasks. Pt took breaks by using one arm then another. UE dowel scottie exercises with 3# wt attached, 3 sets 10 reps (5 exercises). After therapy, pt sitting on bed in room, nrsg notified that pt back in room and wanting pain medications. Call light/phone in reach. All needs met in room. OT Short Term Goals Short Term Goals 1=Demonstrate adherence to instructed precautions during ADL tasks. 2=Patient will verbalize/demonstrate understanding of assistive devices/ modifications for ADL. 3=Patient will improve strength/tolerance for activity to enable patient to perform ADL's. OT Superintendent Custodian Janitor Goals Superintendent Custodian Janitor Goals Time Frame: Jul 23, 2016 Eating (FIM): 6 Eating (QC): 6 Oral Hygiene (QC): 6 Grooming(FIM): 6 Bathing(FIM): 6 Shower/Bathe Self (QC): 6 Upper Body Dressing(FIM): 6 Upper Body Dressing (QC): 6 Lower Body Dressing(FIM): 6 Lower Body Dressing (QC): 6 On/Off Footwear (QC): 6 Toileting(FIM): 6 Toileting Hygiene (QC): 6 Toilet/Commode Transfer(FIM): 6 Toilet/Commode Transfer (QC): 6 Shower Transfer(FIM): 6 Comprehension(FIM): 5 Expression (FIM): 5 Social Interaction(FIM): 5 Problem Solving(FIM): 5 Memory(FIM): 5 Additional Goals: 1-Demonstrate ADL Tasks, 2-Verbalize Understanding, 3- ImproveStrength/Claudy 1=Demonstrate adherence to instructed precautions during ADL tasks. 2=Patient will verbalize/demonstrate understanding of assistive devices/ modifications for ADL. 3=Patient will improve strength/tolerance for activity to enable patient to perform ADL's. OT Education/Plan Problem List/Assessment Pt demonstrates mildly decreased mobility, strength, and activity tolerance. Pt to benefit from skilled OT intervention for ADL training, transfers, strengthening, and home safety education to maximize level of independence and allow safe discharge. Discharge Recommendations Plan/Recommendations: Continue POC Treatment Plan/Plan of Care Patient would benefit from OT for education, treatment and training to promote independence in ADL's, mobility, safety and/or upper extremity function for ADL' s. Plan of Care: ADL Retraining, Functional Mobility, Group Exercise/Act as Ind, UE Funct Exercise/Act, UE Neuromus Re-Ed/Coord Treatment Duration: Jul 23, 2016 Minutes/Day (M-F): 60-90 Minutes/Day (Sat/Marie): PRN Agreement: Yes Rehab Potential: Fair Time/GCodes Start Time: 08:00 Stop Time: 09:00 Total Time Billed (hr/min): 60 Billed Treatment Time 1 visit-EX 4 (60 min) REYNA TORREZ Jul 03, 2016 08:54
[2016-07-03] MEDS: DICLOFENAC 1% GEL 100 GM (VOLTAREN) TUBE TOP SCH ×4 (09:02→21:02)
[2016-07-03] MEDS: ORPHENADRINE 100 MG PO SCH ×2 (09:36→21:01)
--- NOTE | 2016-07-03 10:09 | Physical Therapy Daily Note ---
PT Daily Note-Current Subjective Pt reports occasional dizziness. No pain reported at this time. Appearance Alert and oriented. Mental Status Patient Orientation: Person, Place, Time, Situation Transfers Functional [place] Measure 0=Not Assessed/NA 4=Minimal Assistance 1=Total Assistance 5=Supervision or Setup 2=Maximal Assistance 6=Modified [place] 3=Moderate Assistance 7=Complete IndependenceIRFPAI Quality Coding Scale 6 Independent with activity with or without an assistive device 5 Patient requires set up or clean up by helper. Patient completes activity by themselves 4 Supervision or touching assist (CGA). [place] provide cues , steadying assist 3 The helper provides less than half the effort to complete the activity 2 The helper provides more than half the effort to complete the activity 1 Dependent. The helper does all the effort to complete an activity 7 Patient refused to complete or attempt activity 9 The patient did not perform the activity before the current illness or injury 88 Not attempted due to Medical conditions or safety concerns Transfers (B, C, W/C) (FIM): 6 Sit to/from Stand: 6 Pt uses (B) hands during rise from sit to stand. Gait Training Does the Patient Walk?: Yes Distance: 800ft Gait Level of Assist: 6 Gait Persons Needed: 1 Gait Assistive Device: None Balance Special Test Comments Balance training: marching, side step, and tandem ambulation 80ft 2x each Exercises Standin way Ex=Flex, Abd, Ext, Marching Standing Reps: 20 NuStep Minutes: 12 NuStep Workload: 5 Assessment Current Status: Good Progress Relative to his last visit, he is ambulating safely, with no incidence of LOB or instability. PT Short Term Goals Short Term Goals Time Frame: Jul 09, 2016 Gait (FIM): 5 Gait Distance Comment: 600' Gait Level of Assist: 5 Gait Assistive Device: Cane Single Point Stairs (FIM): 2 # of Steps: 4 Stairs Level of Assist: 5 PT Long-Term Goals Long-Term Goals PT Tearoom Host Goals Time Frame: Jul 23, 2016 Transfers (B,C,W/C) (FIM): 6 Sit to Lying (QC): 6 Lying-Sitting on Side/Bed(QC): 6 Sit to Stand (QC): 6 Rollin Roll Left to Right (QC): 6 Car Transfer (QC): 4 Does the Patient Walk: Yes Gait (FIM): 6 Distance: 600' Walk 10 feet (QC): 6 Walk 10ft-Uneven Surface(QC): 6 Walk 50ft with 2 Turns (QC): 6 Walk 150 ft (QC): 6 Gait Assistive Device: Cane Single Point Stairs (FIM): 5 # of Steps: 12 1 Step (curb) (QC): 4 4 Steps (QC): 4 12 Steps (QC): 4 Stairs Level Of Assist: 5 Picking up an Object (QC): 4 PT Plan Treatment/Plan Treatment Plan: Continue Plan of Care Treatment Plan: Bed Mobility, Education, Functional Activity Claudy, Functional Strength, Group Therapy, Gait, Safety, Therapeutic Exercise, Transfers Treatment Duration: Jul 23, 2016 Visits Per Week: 10-11 Minutes/Day (M-F): 60-90 Minutes/Day (Sat/Marie): 15-30 Time/GCodes Time In: 0925 Time Out: 1003 Total Billed Treatment Time: 38 Total Billed Treatment 1, ex x25', gt x13' G Codes Necessary: SHARON Lindquist PT Jul 03, 2016 10:09
--- NOTE | 2016-07-03 10:58 | Speech Therapy Daily Note ---
Speech Daily Progress Note Subjective The patient was seated upright in chair upon entrance. The patient greeted the clinician appropriately and agreed to participate in the cognitive treatment session on this date. Objective Assessment of Language Related Functional Activities (RENETTA): - Telling Time: The patient demonstrated 100% accuracy with telling time on an analog clock. - Reading Instructions: The patient demonstrated 90% accuracy with reading simple instructions. - Using a Calendar: The patient demonstrated 100% accuracy with using a calendar. - Solving Daily Math Problems: The patient demonstrated 70% with mild clinician verbal cueing for simple math problem. Assessment Assessment Current Status: Good Progress Treatment Plan Continue Plan of Care Communication Comprehension: 5 Expression: 5 Social Cognition Social Interaction: 5 Problem Solvin Memory: 5 Speech Short Term Goals Short Term Goals Short Term Goals 1. The patient will demonstrate 90% accuracy with safety problem solving, independently. 2. The patient will demonstrate and recall three functional memory strategies for use at home. Time Frame-STG: Two Weeks Speech Detention Goals Detention Goals 1. The patient will demonstrate improved cognition for increased function and safety with ADL's in the least restrictive setting. Time Frame: Three Weeks Comprehension: 5 Expression: 5 Social Interaction: 5 Problem Solvin Memory: 5 Speech-Plan Treatment Plan Speech Therapy Treatment Plan: Continue Plan of Care Skilled cognitive therapy to focus on functional memory and problem solving. Treatment Duration: Jul 23, 2016 # of days/week Three Visits Per Week: Three Rehab Potential: Fair Safety Risks/Education Teaching Recipient: Patient Teaching Methods: Discussion Response to Teaching: Return Demonstration Education Topics Provided: Orientation Strategies Time Speech Therapy Time In: 10:00 Speech Therapy Time Out: 10:30 Total Billed Time: 30 Billed Treatment Time 1LIU ELIZABETH ST Jul 03, 2016 10:58
--- NOTE | 2016-07-03 11:08 | PM & R (SOAP) Progress Note ---
Subjective Subjective/Events-last exam Patient was seen in his room this AM Patient up to bathroom on his own without gait aide Reports mild dizziness intermitent but rt shoulder pain improved with med adjustment Review of Systems Musculoskeletal: : shoulder pain Neurological: : Other (intermittent dizziness) Objective Exam Last Set of Vital Signs Vital Signs Date Time Temp Pulse Resp B/P Pulse Ox O2 Delivery O2 Flow Rate FiO2 07/03/16 09:00 Room Air 07/03/16 06:00 97.6 55 16 90/56 95 Capillary Refill : I&O Intake and Output 07/03/16 00:00 Intake Total 1880 ml Balance 1880 ml Intake Oral 1880 ml # Voids 5 General: Alert, Oriented X3, Cooperative, No Acute Distress HEENT: Atraumatic, PERRLA, EOMI, Mucous Memb Moist/[place] Neck: Supple, No JVD Lungs: Clear to Auscultation Heart: Regular Rate Abdomen: Normal Bowel Sounds, Soft, No Tenderness Extremities: No Edema Neuro: Other (Tender rt shoulder with Limited AROM in flex and abdustion) Results Lab Laboratory Tests 07/02/16 05:20: Alanine Aminotransferase (ALT/SGPT) 44, Albumin 3.6, Alkaline Phosphatase 67, Anion Gap 8, Aspartate Amino Transf (AST/SGOT) 21, BUN/Creatinine Ratio 10, Basophils # (Auto) 0.0, Basophils (%) (Auto) 0, Blood Urea Nitrogen 11, Calcium Level 8.9, Carbon Dioxide Level 23, Chloride Level 110H, Creatinine 1.05, Eosinophils # (Auto) 0.3, Eosinophils (%) (Auto) 4, Estimat Glomerular Filtration Rate > 60, Glucose Level 103, Hematocrit 43, Hemoglobin 14.5, Lymphocytes # (Auto) 1.7, Lymphocytes (%) (Auto) 22, Mean Corpuscular Hemoglobin 29, Mean Corpuscular Hemoglobin Concent 34, Mean Corpuscular Volume 86, Mean Platelet Volume 10.0, Monocytes # (Auto) 1.0, Monocytes (%) (Auto) 13H , Neutrophils # (Auto) 4.8, Neutrophils (%) (Auto) 62, Platelet Count 247, Potassium Level 3.5L, Red Blood Count 4.98, Red Cell Distribution Width 16.7H, Sodium Level 141, Total Bilirubin 0.4, Total Protein 6.4, White Blood Count 7.8 Assessment/Plan Assessment General debil secondary to encephalopathy related ETOH intoxication. RT Rotator cuff tear dizziness multifactorial Plan Continue PT/OT Pain Management-see orders-done and improved Team Conference later today-See report for full functional update and POC [facility] consult-see orders EDUARDO TOM MD Jul 03, 2016 11:08
--- NOTE | 2016-07-03 14:53 | Therapy Group Daily Note ---
Therapy Daily Group Note Patient Education Topic Home Safety Exercises LE Seated Exercise, UE Exercise Other/Notes Each patient had group therapy in the common area of rehab. Each patient was transported by wheelchair or ambulation as they were able and seated in a [place]. Each patient introduced themselves, stated where they were from and had to recall a specific memory from their past. Then, they all performed an activity that involved social interaction, memory, critical thinking, and problem solving. Next, the therapists provided education on home safety devices. Intermittently during group therapy the patients participated in seated exercises involving both upper and lower extremities. When it was done, each patient was transported back to their room by wheelchair or ambulation as they were able, call lights within reach and alarms on if applicable. This patient had to leave group therapy at around 1400 to attend a mental health meeting. Start Time: 13:00 Stop Time: 14:15 Total Billed Treatment Time: 75 Total Billed Treatment 1 visit GRP 75 min MATTHEW EUGENE PT Jul 03, 2016 14:53 DARRELL BERNSTEIN OT Jul 03, 2016 15:05
[2016-07-03 18:00] VITALS: BP 119/78
[2016-07-03] MEDS: traZODone 100 MG (DESYREL) TAB PO SCH (21:01)
[2016-07-03] MEDS: QUEtiapine 100 MG (SEROquel) TAB IMMEDIATE RELEASE PO SCH (21:01)
[2016-07-04] MEDS: HYDROcodone/APAP 10 MG/325 MG (LORTAB) TAB PO PRN ×5 (04:14→20:52)
[2016-07-04 04:55] VITALS: BP 110/71
[2016-07-04] MEDS: cloNIDine 0.1 MG (CATAPRES) TAB PO SCH ×3 (08:15→20:52)
[2016-07-04] MEDS: SERTRALINE 100 MG (ZOLOFT) TAB PO SCH (08:15)
[2016-07-04] MEDS: IBUPROFEN 800 MG (MOTRIN) TAB PO PRN (08:15)
[2016-07-04] MEDS: meTOprolol TARTRATE 50 MG (LOPRESSOR) TAB PO SCH (08:15)
[2016-07-04] MEDS: ORPHENADRINE 100 MG PO SCH ×2 (08:16→20:52)
[2016-07-04] MEDS: DICLOFENAC 1% GEL 100 GM (VOLTAREN) TUBE TOP SCH ×4 (08:16→20:54)
--- NOTE | 2016-07-04 08:33 | Progress Note (SOAP) ---
Subjective Subjective/Events-last exam encephalopathy. Ethanol abuse. Hypertension. Weakness. Patient getting around better. Still hurts in the right shoulder but has if he of air area Patient in the right direction Objective Exam Vital Signs Date Time Temp Pulse Resp B/P Pulse Ox O2 Delivery O2 Flow Rate FiO2 07/04/16 04:55 97.7 55 16 110/71 96 Room Air 07/03/16 20:30 Room Air 07/03/16 18:00 98.2 67 16 119/78 97 Room Air 07/03/16 09:00 Room Air I & O 07/04/16 07:00 Intake Total 1390 ml Balance 1390 ml Capillary Refill : General Appearance: No Apparent Distress WD/WN HEENT: Normal ENT Inspection Neck: Normal Inspection Assessment/Plan Assessment/Plan Assess & Plan/Chief Complaint alcohol poisoning. Acute encephalopathy. Elevated liver enzymes. Acute respiratory failure with hypoxemia and hypercapnia. Sepsis. Aspiration pneumonia. History of depression. Right shoulder pain. . . Alcohol poisoning. Acute encephalopathy. Elevated liver enzymes resolved. Acute respiratory failure resolved. Hypoxemia resolved. . 07/04. Acute encephalopathy. Alcohol poisoning. Elevated liver enzymes. Acute respiratory failure. Patient doing good with PT. Patient doing more by himself. Right shoulder pain but has care of their Diagnosis/Problems: Clinical Quality Measures DVT/VTE Risk/Contraindication: Risk Factor Score Per Nursin RFS Level Per Nursing on Admit: 1=Low/No VTE PPX CORDELL ZAVALA DO Jul 04, 2016 08:33
--- NOTE | 2016-07-04 10:44 | Speech Therapy Daily Note ---
Speech Daily Progress Note Subjective The patient was seated upright in bed upon entrance. The patient greeted the clinician appropriately and agreed to participate in cognitive treatment on this date. Objective RENETTA (Functional Activities completed at Home): - Counting Money, Adding Change: The patient demonstrated 100% accuracy with counting money and change, independently. - Addressing an Envelope: The patient demonstrated 100% accuracy with addressing an envelope and writing her personal home address in the return mail region, independently. - Reading Medicine Labels: The patient demonstrated 100% accuracy with reading medicine labels and filling in a medicine chart. Assessment Assessment Current Status: Good Progress Treatment Plan Continue Plan of Care Communication Comprehension: 5 Expression: 5 Social Cognition Social Interaction: 5 Problem Solvin Memory: 5 Speech Short Term Goals Short Term Goals Short Term Goals 1. The patient will demonstrate 90% accuracy with safety problem solving, independently. 2. The patient will demonstrate and recall three functional memory strategies for use at home. Time Frame-STG: Two Weeks Speech Railroad Engineer Goals Railroad Engineer Goals 1. The patient will demonstrate improved cognition for increased function and safety with ADL's in the least restrictive setting. Time Frame: Three Weeks Comprehension: 5 Expression: 5 Social Interaction: 5 Problem Solvin Memory: 5 Speech-Plan Treatment Plan Speech Therapy Treatment Plan: Discontinue ST, Goals Met Goals met at this time, discontinue skilled ST. Treatment Duration: Jul 23, 2016 Rehab Potential: Fair Safety Risks/Education Teaching Recipient: Patient Teaching Methods: Discussion Response to Teaching: Verbalize Understanding Education Topics Provided: Plan of Care Time Speech Therapy Time In: 09:45 Speech Therapy Time Out: 10:15 Total Billed Time: 30 Billed Treatment Time 1, AKSHAT MATTHEW Jul 04, 2016 10:44
--- NOTE | 2016-07-04 11:23 | Therapy Team Discharge Summary ---
Therapy Discharge Summary Discharge Recommendations Date of Discharge Therapy D/C Recommendations: Home w/ Family Support Speech-Language Pathology The patient was recently admitted to [facility] with a diagnosis of acute encephalopathy. Upon admission, the patient demonstrated mild cognitive deficits in the regions of memory and attention. Skilled speech therapy focused on functional tasks including counting money, telling time on an analog clock, recording phone messages, and reading a calendar. The patient demonstrated high accuracy with all exercises and met all goals initially placed by the clinician. The patient will be discharged from skilled speech services at this time. Additional speech services are not warranted post discharge. PT Manager Pharmacy Goals Long-Term Goals PT Long-Term Goals Time Frame: Jul 23, 2016 Transfers (B,C,W/C) (FIM): 6 Roll Left to Right (QC): 6 Sit to Lying (QC): 6 Lying-Sitting on Side/Bed(QC): 6 Sit to Stand (QC): 6 Car Transfer (QC): 4 Does the Patient Walk: Yes Gait (FIM): 6 Distance: 600' Walk 10 feet (QC): 6 Walk 10ft-Uneven Surface(QC): 6 Walk 50ft with 2 Turns (QC): 6 Walk 150 ft (QC): 6 Gait Assistive Device: Cane Single Point Stairs (FIM): 5 # of Steps: 12 1 Step (curb) (QC): 4 4 Steps (QC): 4 12 Steps (QC): 4 Stairs Level Of Assist: 5 Picking up an Object (QC): 4 OT Long-Term Goals Manager Pharmacy Goals Time Frame: Jul 23, 2016 Eating (FIM): 6 Eating (QC): 6 Oral Hygiene (QC): 6 Grooming(FIM): 6 Bathing(FIM): 6 Shower/Bathe Self (QC): 6 Upper Body Dressing(FIM): 6 Upper Body Dressing (QC): 6 Lower Body Dressing(FIM): 6 Lower Body Dressing (QC): 6 On/Off Footwear (QC): 6 Toileting(FIM): 6 Toileting Hygiene (QC): 6 Toilet/Commode Transfer(FIM): 6 Toilet/Commode Transfer (QC): 6 Shower Transfer(FIM): 6 Comprehension(FIM): 5 Expression (FIM): 5 Social Interaction(FIM): 5 Problem Solving(FIM): 5 Memory(FIM): 5 Additional Goals: 1-Demonstrate ADL Tasks, 2-Verbalize Understanding, 3- ImproveStrength/Claudy 1=Demonstrate adherence to instructed precautions during ADL tasks. 2=Patient will verbalize/demonstrate understanding of assistive devices/ modifications for ADL. 3=Patient will improve strength/tolerance for activity to enable patient to perform ADL's. Speech Manager Pharmacy Goals Long-Term Goals 1. The patient will demonstrate improved cognition for increased function and safety with ADL's in the least restrictive setting. Time Frame: Three Weeks Comprehension: 5 (MET) Expression: 5 (MET) Social Interaction: 5 (MET) Problem Solvin (MET) Memory: 5 (MET) AKSHAT CHAVEZ Jul 04, 2016 11:23
--- NOTE | 2016-07-04 11:45 | Behavioral Health Consult ---
Consult- Consult [facility] PSYCHOLOGICAL CONSULTATION PATIENT: Toribio Mercado DATE: 1975 DATE OF EVALUATION: 07/03/16 (14:05-14:45) DATE OF REPORT: 07/04/16 REFERRAL QUESTION: Toribio Mercado is a 41-year-old male who was admitted to the hospital because of aspirating after consuming too much alcohol. He was sent to [facility] from [facility] in order to receive physical therapy for his shoulder by report. Dr. Smith asked for a mental health evaluation. TESTS ADMINISTERED: Clinical Interview with Patient PRESENTING PROBLEMS: Toribio Mercado reports that he drank too much alcohol with friends one night and does not know what happened after that. He states that the next thing he realized was that he was in the ICU. He denies being depressed or sad and said that he was just having a good time drinking with friends. He does report a history of alcohol-related problems but denies using alcohol as a stress reliever. He agreed with this writers statement that that he did not drink that frequently but did drink to excess. Mr. Mercado reports that he has three DWIs and will not be allowed to drive before December of 2020. He reports that he got out of [facility] on 10/31/15. He reports that he was mandated to go to treatment in the past but never planned on changing his behavior. He reports that this incident is different as he almost . He states that he can see himself staying away from alcohol now as he realizes what it can possibly do to him. CURRENT/PREVIOUS MENTAL HEALTH TREATMENT: No previous voluntary mental health treatment was reported. He reports that he was forced to go to outpatient intensive substance abuse treatment at [facility] as part of his parole. He states that he was put in the hospital for 96 hour holds in the past also. He states that he went to rehab in [facility] but states that it was not helpful. MEDICAL HISTORY: See medical chart for detailed history. He reports having a torn rotator cuff which requires surgery. RECREATIONAL DRUG USAGE: He denies the use of illegal drugs but admits to having multiple problems with alcohol. He denies needing to drink it every day but states that he does like to drink it. He states that he has never wanted to stop before but feels like he is at that point now. EDUCATIONAL AND VOCATIONAL HISTORIES: Mr. Mercado reports that he dropped out of high school in the 11th grade. He states that he did earn his GED in [facility] though. He states that he is currently enrolled in welding classes at [employer] He states that he started taking classes in January of 2016 and was scheduled to graduate in March of this year. He states that this event will likely delay his schooling. 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 LEGAL HISTORY: He reports having three Driving While Intoxicated convictions. He states that the last one was a felony because of the prior two. He states that his last one occurred in 2010 and that due to failure to comply with parole /probation, he did not get out of [facility] until 10/31/2015. He states that a public intoxication led to him going away for three years. FAMILY AND SOCIAL HISTORIES/SOCIAL SUPPORT: Mr. Mercado reports that he is currently staying in [place], [place] with his mother and step father. He states that he gets along well with them and that his mother is a nurse for Dr. Barone the psychiatrist in [place]. He states that his mother has custody of his 15 year-old son. He states that his son attends school in [place], [place] at a [employer] school where he boards as well. He states that he comes home each weekend and that their homeworker, who commutes from [place], helps with transporting him. He states that his 18 year-old daughter is currently staying with a friend in [place] and dropped out of high school. BEHAVIORAL OBSERVATIONS/MENTAL STATUS: The patient was seen in his hospital room as he was dressed in street clothes and sitting up on his bed. The patient was cooperative during the interview and was pleasant. He had flat affect for most of the interview and reported that he is mostly euthymic. He denies being depressed but did admit to having some anxiety issues which make it hard to sleep at night. He states that his appetite is good. He denied that his alcohol overdose was a suicide attempt. He seemed to have some delay in his speech, but his manner of speaking was normal. SUMMARY/RECOMMENDATIONS: Mr. Mercado is currently at the hospital due to an incident involving alcohol overdose and current shoulder difficulty. He has been to alcohol treatment in the past but was always court ordered to be there. This business writer recommends that he attend counseling related to his substance abuse and reported anxiety. This business writer also recommends that he follow up with a psychiatric provider in order to attempt to treat his self-reported anxiety with medication. He should be able to receive this services in [place], [place], which is closer to his home. He reports that he is currently taking Zoloft in the hospital which could be a good fit for him. DIAGNOSTIC IMPRESSIONS: F10.20 Alcohol Use Disorder and F41.8 Unspecified Anxiety Disorder Thank you for the opportunity to consult on this patient. PARI CRANDALL PSYD Jul 04, 2016 11:45
--- NOTE | 2016-07-04 12:16 | Physical Therapy Daily Note ---
PT Daily Note-Current Subjective Patient in bed pre tx, agrees to PT. He states he has no pain but that he feels his balance is a little off today. Appearance Patient sitting EOB post tx, has nurse call, phone, tray, all needs met. Mental Status Patient Orientation: Person, Place, Situation Transfers Functional [place] Measure 0=Not Assessed/NA 4=Minimal Assistance 1=Total Assistance 5=Supervision or Setup 2=Maximal Assistance 6=Modified [place] 3=Moderate Assistance 7=Complete IndependenceIRFPAI Quality Coding Scale 6 Independent with activity with or without an assistive device 5 Patient requires set up or clean up by helper. Patient completes activity by themselves 4 Supervision or touching assist (CGA). [place] provide cues , steadying assist 3 The helper provides less than half the effort to complete the activity 2 The helper provides more than half the effort to complete the activity 1 Dependent. The helper does all the effort to complete an activity 7 Patient refused to complete or attempt activity 9 The patient did not perform the activity before the current illness or injury 88 Not attempted due to Medical conditions or safety concerns Transfers (B, C, W/C) (FIM): 5 Scootin Rollin Roll Left to Right (QC): 6 Supine to/from Sit: 6 Sit to/from Stand: 5 Sit to Lying (QC): 6 Sit to Stand (QC): 4 Car Transfer (QC): 88 Patient performs transfers with mod I but needs SBA with sit to stand Gait Training Gait (FIM): 5 Distance: 1200'x2 Walk 10 feet (QC): 4 Walk 50 ft with 2 Turns(QC): 4 Walk 150 ft (QC): 4 Walking 10ft/uneven surface-QC: 4 Gait Level of Assist: 5 Gait Persons Needed: 1 Gait Assistive Device: None Patient ambulates 1200' without an assistive device with SBA (including 10' over an uneven surface like carpet and 50' with at least 2 turns of 90 degrees) . He does have moments of unsteadiness but is able to recover without LOB Wheelchair Training Does the Pt Use a Wheelchair?: No Stair Training Stair Training: Handrails/: 1 handrail Stairs (FIM): 5 #of Steps: 12 1 Step (curb) (QC): 4 4 Steps (QC): 4 12 Steps (QC): 4 Stairs: Pattern: Step to Level of Assist: 5 Balance Picking up an Object (QC): 4 Special Test Comments SBA Exercises NuStep Minutes: 15 NuStep Workload: 6 Treatments bed mobility and transfers, ambulation, stair training, patient also performed the Nguyen Balance Scale and scored a 43/56 which is up from 41/56. Even though he scored better, he had a lot of trouble getting through the test and needed several rest breaks. He would also, with prolonged standing, get retropulsive suddenly and then recover almost like he was pushed backward by somebody. Assessment Current Status: Fair Progress improved balance PT Short Term Goals Short Term Goals Time Frame: Jul 09, 2016 Gait (FIM): 5 Gait Distance Comment: 600' Gait Level of Assist: 5 Gait Assistive Device: Cane Single Point Stairs (FIM): 2 # of Steps: 4 Stairs Level of Assist: 5 PT Chief Electrician Goals Chief Electrician Goals PT Chief Electrician Goals Time Frame: Jul 23, 2016 Transfers (B,C,W/C) (FIM): 6 Sit to Lying (QC): 6 (met) Lying-Sitting on Side/Bed(QC): 6 (met) Sit to Stand (QC): 6 Rollin (met) Roll Left to Right (QC): 6 (met) Car Transfer (QC): 4 Does the Patient Walk: Yes Gait (FIM): 6 Distance: 600' Walk 10 feet (QC): 6 Walk 10ft-Uneven Surface(QC): 6 Walk 50ft with 2 Turns (QC): 6 Walk 150 ft (QC): 6 Gait Assistive Device: Cane Single Point Stairs (FIM): 5 (met) # of Steps: 12 (mt) 1 Step (curb) (QC): 4 4 Steps (QC): 4 (met) 12 Steps (QC): 4 (met) Stairs Level Of Assist: 5 (met) Picking up an Object (QC): 4 (mt) PT Plan Problem List Problem List: Activity Tolerance, Functional Strength, Safety, Balance, Gait, Transfer Treatment/Plan Treatment Plan: Continue Plan of Care Treatment Plan: Bed Mobility, Education, Functional Activity Claudy, Functional Strength, Group Therapy, Gait, Safety, Therapeutic Exercise, Transfers Treatment Duration: Jul 23, 2016 Visits Per Week: 10-11 Minutes/Day (M-F): 60-90 Minutes/Day (Sat/Marie): 15-30 Safety Risks/Education Patient Education: Gait Training, Transfer Techniques, Steps, Safety Issues Teaching Recipient: Patient Teaching Methods: Demonstration, Discussion Response to Teaching: Reinforcement Needed Time/GCodes Time In: 1115 Time Out: 1215 Total Billed Treatment Time: 60 Total Billed Treatment 1 visit NM 15 min EX 15 min GT 30 min MATTHEW EUGENE PT Jul 04, 2016 12:16
--- NOTE | 2016-07-04 12:45 | Occupational Ther Daily Note ---
OT Current Status-Daily Note Subjective Pt in bed, agrees to treatment. Pt reports 6/10 right shoulder pain. Mental Status/Objective Functional [place] Measure 0=Not Assessed/NA 4=Minimal Assistance 1=Total Assistance 5=Supervision or Setup 2=Maximal Assistance 6=Modified [place] 3=Moderate Assistance 7=Complete [place] ADL-Treatment Pt feeding self breakfast this am. Pt able to open containers, cut food, and feed self without assistance. Sit to stand with modified independence. Gait to restroom without AD, no LOB noted. Pt has already gathered clothing prior to session. Transfer to walk in shower with modified independence using grab bar. [place] clothing without assistance. Pt completed seated bathing using hand held shower. Pt able to wash/dry all areas with modified independence. Don pullover shirt with modified independence. Pt donned underwear, pants, socks and shoes with modified independence. Pt does not have any LOB during ADL tasks. Stood at sink to complete grooming. Pt brushed teeth and combed hair with modified independence. Pt demonstrated ability to perform toilet transfer with modified independence using grab bar. Pt states he has been getting up to restroom without assistance and is able to manage clothing and hygiene. Pt gathered dirty clothing and carried it to laundry room. Pt placed clothing and soap in washer and placed on appropriate setting without assistance. Functional [place] Measure 0=Not Assessed/NA 4=Minimal Assistance 1=Total Assistance 5=Supervision or Setup 2=Maximal Assistance 6=Modified [place] 3=Moderate Assistance 7=Complete IndependenceIRFPAI Quality Coding Scale 6 Independent with activity with or without an assistive device 5 Patient requires set up or clean up by helper. Patient completes activity by themselves 4 Supervision or touching assist (CGA). [place] provide cues , steadying assist 3 The helper provides less than half the effort to complete the activity 2 The helper provides more than half the effort to complete the activity 1 Dependent. The helper does all the effort to complete an activity 7 Patient refused to complete or attempt activity 9 The patient did not perform the activity before the current illness or injury 88 Not attempted due to Medical conditions or safety concerns Eating (FIM): 7 Eating (QC): 6 Grooming (FIM): 6 Oral Hygiene (QC): 6 Toileting Hygiene (QC): 6 (by report) Bathing (FIM): 6 Shower/Bathe Self (QC): 6 Upper Body (FIM): 6 Upper Body Dressing (QC): 6 Lower Body Dressing (FIM): 6 Lower Body Dressing (QC): 6 On/Off Footwear (QC): 6 Toileting (FIM): 6 Toilet/Commode Transfer (FIM): 6 Toilet Transfer (QC): 6 Shower Transfer(FIM): 6 Other Treatment Pt performed gait to therapy gym. Balloon bat activity completed while standing to promote increased dynamic standing balance. Pt completed task without LOB. One rest break taken during activity. Pt returned to room, in bed with needs met after session. OT Short Term Goals Short Term Goals 1=Demonstrate adherence to instructed precautions during ADL tasks. 2=Patient will verbalize/demonstrate understanding of assistive devices/ modifications for ADL. 3=Patient will improve strength/tolerance for activity to enable patient to perform ADL's. OT Jail Goals Nuclear Logging Engineer Goals Time Frame: Jul 23, 2016 Eating (FIM): 6 (met 07/04/16) Eating (QC): 6 (6-met) Groomin (met 07/04/16) Oral Hygiene (QC): 6 (6-met) Bathing(FIM): 6 (met 07/04/16) Shower/Bathe Self (QC): 6 (6-met) Upper Body Dressing(FIM): 6 (met 07/04/16) Upper Body Dressing (QC): 6 (6-met) Lower Body Dressing(FIM): 6 (met 07/04/16) Lower Body Dressing (QC): 6 (6-met) On/Off Footwear (QC): 6 (6-met) Toileting(FIM): 6 (met 07/04/16) Toileting Hygiene (QC): 6 (6-met) Toilet/Commode Transfer(FIM): 6 (met 07/04/16) Toilet/Commode Transfer (QC): 6 (6-met) Shower Transfer(FIM): 6 (6-met) Comprehension(FIM): 5 (MET) Expression (FIM): 5 (MET) Social Interaction(FIM): 5 (MET) Problem Solving(FIM): 5 (MET) Memory(FIM): 5 (MET) Additional Goals: 1-Demonstrate ADL Tasks, 2-Verbalize Understanding, 3- ImproveStrength/Claudy 1=Demonstrate adherence to instructed precautions during ADL tasks. 2=Patient will verbalize/demonstrate understanding of assistive devices/ modifications for ADL. 3=Patient will improve strength/tolerance for activity to enable patient to perform ADL's. OT Education/Plan Problem List/Assessment Pt demonstrates mildly decreased mobility, strength, and activity tolerance. Pt to benefit from skilled OT intervention for ADL training, transfers, strengthening, and home safety education to maximize level of independence and allow safe discharge. Discharge Recommendations Plan/Recommendations: Continue POC Treatment Plan/Plan of Care Patient would benefit from OT for education, treatment and training to promote independence in ADL's, mobility, safety and/or upper extremity function for ADL' s. Plan of Care: ADL Retraining, Functional Mobility, Group Exercise/Act as Ind, UE Funct Exercise/Act, UE Neuromus Re-Ed/Coord Treatment Duration: Jul 23, 2016 Minutes/Day (M-F): 60-90 Minutes/Day (Sat/Marie): PRN Agreement: Yes Rehab Potential: Fair Time/GCodes Start Time: 08:15 Stop Time: 09:15 Total Time Billed (hr/min): 60 Billed Treatment Time 1 visit, ADLx3(45minutes), FA(15minutes) ELENA LAU OT Jul 04, 2016 12:45
--- NOTE | 2016-07-04 13:37 | PM & R (SOAP) Progress Note ---
Subjective Subjective/Events-last exam Patient was seen in his room this nohour.Appreciate DR Ellington consult.Patient Supervision to Modified Independent for mobility Patient still c/o internittent dizziness and gait imbalance most likely related to chronic ETOH abuse Objective Exam Last Set of Vital Signs Vital Signs Date Time Temp Pulse Resp B/P Pulse Ox O2 Delivery O2 Flow Rate FiO2 07/04/16 09:00 Room Air 07/04/16 04:55 97.7 55 16 110/71 96 Capillary Refill : I&O Intake and Output 07/04/16 00:00 Intake Total 1890 ml Balance 1890 ml Intake Oral 1890 ml # Voids 7 # Bowel Movements 1 General: Alert, Oriented X3, Cooperative, No Acute Distress HEENT: Atraumatic, PERRLA, EOMI, Mucous Memb Moist/[place] Neck: Supple, No JVD Lungs: Clear to Auscultation Heart: Regular Rate Abdomen: Normal Bowel Sounds, Soft, No Tenderness Extremities: No Edema Neuro: Other (Tender rt shoulder with Limited AROM in flex and abdustion) Results Lab Laboratory Tests 07/02/16 05:20: Alanine Aminotransferase (ALT/SGPT) 44, Albumin 3.6, Alkaline Phosphatase 67, Anion Gap 8, Aspartate Amino Transf (AST/SGOT) 21, BUN/Creatinine Ratio 10, Basophils # (Auto) 0.0, Basophils (%) (Auto) 0, Blood Urea Nitrogen 11, Calcium Level 8.9, Carbon Dioxide Level 23, Chloride Level 110H, Creatinine 1.05, Eosinophils # (Auto) 0.3, Eosinophils (%) (Auto) 4, Estimat Glomerular Filtration Rate > 60, Glucose Level 103, Hematocrit 43, Hemoglobin 14.5, Lymphocytes # (Auto) 1.7, Lymphocytes (%) (Auto) 22, Mean Corpuscular Hemoglobin 29, Mean Corpuscular Hemoglobin Concent 34, Mean Corpuscular Volume 86, Mean Platelet Volume 10.0, Monocytes # (Auto) 1.0, Monocytes (%) (Auto) 13H , Neutrophils # (Auto) 4.8, Neutrophils (%) (Auto) 62, Platelet Count 247, Potassium Level 3.5L, Red Blood Count 4.98, Red Cell Distribution Width 16.7H, Sodium Level 141, Total Bilirubin 0.4, Total Protein 6.4, White Blood Count 7.8 Assessment/Plan Assessment General debil secondary to encephalopathy related ETOH intoxication. RT Rotator cuff tear dizziness multifactorial Plan Continue PT/OT Pain Management-see orders-done and improve [facility] consult-done Team Conference held yesterday-See report for full functional update and POC Discharge set for tomorrow EDUARDO TOM MD Jul 04, 2016 13:37
--- NOTE | 2016-07-04 13:43 | Occupational Ther Daily Note ---
OT Current Status-Daily Note Subjective Pt in bed, agrees to treatment. Pt states he recently had pain pill so has very little pain. Mental Status/Objective Functional [place] Measure 0=Not Assessed/NA 4=Minimal Assistance 1=Total Assistance 5=Supervision or Setup 2=Maximal Assistance 6=Modified [place] 3=Moderate Assistance 7=Complete [place] ADL-Treatment Functional [place] Measure 0=Not Assessed/NA 4=Minimal Assistance 1=Total Assistance 5=Supervision or Setup 2=Maximal Assistance 6=Modified [place] 3=Moderate Assistance 7=Complete IndependenceIRFPAI Quality Coding Scale 6 Independent with activity with or without an assistive device 5 Patient requires set up or clean up by helper. Patient completes activity by themselves 4 Supervision or touching assist (CGA). [place] provide cues , steadying assist 3 The helper provides less than half the effort to complete the activity 2 The helper provides more than half the effort to complete the activity 1 Dependent. The helper does all the effort to complete an activity 7 Patient refused to complete or attempt activity 9 The patient did not perform the activity before the current illness or injury 88 Not attempted due to Medical conditions or safety concerns Other Treatment Supine to sit with modified independence. Pt practiced getting items off top shelf and from low drawers to increase standing balance for functional tasks. Pt went to OT kitchen to put ice in cup without assistance. Gait to therapy gym without AD, no LOB noted. Pt performed bilateral UE exercises to promote increased strength needed for ADLs and transfers. Pt performed dowel exercises for shoulders, elbows, and wrist x20 reps. Pt does not have any reports of increased pain during exercises. Bilateral hand utility locator exercises x20 reps to increase utility locator strength. Pt performed fine motor activity with nuts and bolts with 2# weights in place to increase strength and fine motor control. Pt able to complete task without difficulty. Pt returned to room , sitting EOB with needs met after session. OT Short Term Goals Short Term Goals 1=Demonstrate adherence to instructed precautions during ADL tasks. 2=Patient will verbalize/demonstrate understanding of assistive devices/ modifications for ADL. 3=Patient will improve strength/tolerance for activity to enable patient to perform ADL's. OT Stock Analyst Goals Senior Care Goals Time Frame: Jul 23, 2016 Eating (FIM): 6 (met 07/04/16) Eating (QC): 6 (6-met) Groomin (met 07/04/16) Oral Hygiene (QC): 6 (6-met) Bathing(FIM): 6 (met 07/04/16) Shower/Bathe Self (QC): 6 (6-met) Upper Body Dressing(FIM): 6 (met 07/04/16) Upper Body Dressing (QC): 6 (6-met) Lower Body Dressing(FIM): 6 (met 07/04/16) Lower Body Dressing (QC): 6 (6-met) On/Off Footwear (QC): 6 (6-met) Toileting(FIM): 6 (met 07/04/16) Toileting Hygiene (QC): 6 (6-met) Toilet/Commode Transfer(FIM): 6 (met 07/04/16) Toilet/Commode Transfer (QC): 6 (6-met) Shower Transfer(FIM): 6 (6-met) Comprehension(FIM): 5 (MET) Expression (FIM): 5 (MET) Social Interaction(FIM): 5 (MET) Problem Solving(FIM): 5 (MET) Memory(FIM): 5 (MET) Additional Goals: 1-Demonstrate ADL Tasks, 2-Verbalize Understanding, 3- ImproveStrength/Claudy 1=Demonstrate adherence to instructed precautions during ADL tasks. 2=Patient will verbalize/demonstrate understanding of assistive devices/ modifications for ADL. 3=Patient will improve strength/tolerance for activity to enable patient to perform ADL's. OT Education/Plan Problem List/Assessment Pt demonstrates mildly decreased mobility, strength, and activity tolerance. Pt to benefit from skilled OT intervention for ADL training, transfers, strengthening, and home safety education to maximize level of independence and allow safe discharge. Discharge Recommendations Plan/Recommendations: Continue POC Treatment Plan/Plan of Care Patient would benefit from OT for education, treatment and training to promote independence in ADL's, mobility, safety and/or upper extremity function for ADL' s. Plan of Care: ADL Retraining, Functional Mobility, Group Exercise/Act as Ind, UE Funct Exercise/Act, UE Neuromus Re-Ed/Coord Treatment Duration: Jul 23, 2016 Minutes/Day (M-F): 60-90 Minutes/Day (Sat/Marie): PRN Agreement: Yes Rehab Potential: Fair Time/GCodes Start Time: 13:00 Stop Time: 13:30 Total Time Billed (hr/min): 30 Billed Treatment Time 1 visit, EXx2(30minutes) ELENA LAU OT Jul 04, 2016 13:43
[2016-07-04 18:53] VITALS: BP 131/83
--- NOTE | 2016-07-04 20:44 | Individualized Plan of Care ---
Individualized Plan of Care Rehab Nursing IPOC Order Admission Date Jul 01, 2016 at 17:17 Current Orders Orders-EDUARDO TOM MD Patient Visit (07/03/16 ) Treat. Speech/Lang/Voice (07/03/16 ) Patient Visit (07/03/16 ) Exercise Therap, Ea 15 Min (07/03/16 ) Gait Training, Ea 15 Min (07/03/16 ) Patient Visit (07/03/16 ) Therapeutic, Group (07/03/16 ) Patient Visit (07/04/16 ) Treat. Speech/Lang/Voice (07/04/16 ) Patient Visit (07/04/16 ) Gait Training, Ea 15 Min (07/04/16 ) Ex Neuromuscular, Ea 15 Min (07/04/16 ) Exercise Therap, Ea 15 Min (07/04/16 ) PT IPOC Problem List: Activity Tolerance, Functional Strength, Safety, Balance, Gait, Transfer Treatment Plan: Continue Plan of Care Bed Mobility, Education, Functional Activity Claudy, Functional Strength, Group Therapy, Gait, Safety, Therapeutic Exercise, Transfers Treatment Duration: Jul 23, 2016 Visits Per Week: 10-11 Minutes/Day (M-F): 60-90 Minutes/Day (Sat/Marie): 15-30 OT IPOC Problems: Decreased Activ Tolerance, Decreased UE Strength, Dependent Transfers , Impaired Funct Balance, Impaired Self-Care Skills OT Problems Pt demonstrates mildly decreased mobility, strength, and activity tolerance. Pt to benefit from skilled OT intervention for ADL training, transfers, strengthening, and home safety education to maximize level of independence and allow safe discharge. Plan of Care: ADL Retraining, Functional Mobility, Group Exercise/Act as Ind, UE Funct Exercise/Act, UE Neuromus Re-Ed/Coord Treatment Duration: Jul 23, 2016 Visits Per Week: 10-11 Minutes/Day (M-F): 60-90 Minutes/Day (Sat/Marie): PRN ST IPOC Speech Therapy Treatment Plan: Discontinue ST, Goals Met Treatment Duration: Jul 23, 2016 Physician IPOC Medical Issues being managed closely and that require the 24 hour availability of a physician:pain management rt rotator cuff tear,HTN Medical Issues: DVT Prophylaxis, Falls Precautions, Fluid/Electrolyte/ Nutrition Balance, Infection Protection, Pain Management, Other (List) (as per above) Brief Synthesis of Preadmission Screen, Post-Admission Evaluation, and Therapy Evaluations: 41yo male with Chronic etoh abuse who was admitted to OSH due to resp failure secondary to acute alcoholic intoxicationReferred here due to general debil associated with this condition as well as associated cognitive impairment and gait imbalance Also developed a rotator uff tear on rt shoulder and pain management being done.Had been Independent prior to this and living with family in [facility] Medical Prognosis: good Anticipated Length of Stay: 2-10-17 Rehab Goals Modified [place] for adls and mobility skills with decreased pain in rt shoulder Anticipated discharge destinat: Home with family with f/u with ortho as an outpatient EDUARDO TOM MD Jul 04, 2016 20:44
[2016-07-04] MEDS: traZODone 100 MG (DESYREL) TAB PO SCH (20:52)
[2016-07-04] MEDS: QUEtiapine 100 MG (SEROquel) TAB IMMEDIATE RELEASE PO SCH (20:54)
[2016-07-04] MEDS ORDERED: DICL100G18 TOP (21:10)
[2016-07-04] MEDS ORDERED: HYDR-3820 PO (21:10)
[2016-07-04] MEDS ORDERED: IBUP-1780 PO (21:10)
[2016-07-05 06:21] VITALS: BP 108/66
[2016-07-05] MEDS: IBUPROFEN 800 MG (MOTRIN) TAB PO PRN (07:55)
[2016-07-05] MEDS: SERTRALINE 100 MG (ZOLOFT) TAB PO SCH (07:55)
[2016-07-05] MEDS: meTOprolol TARTRATE 50 MG (LOPRESSOR) TAB PO SCH (07:55)
[2016-07-05] MEDS: cloNIDine 0.1 MG (CATAPRES) TAB PO SCH ×2 (07:56→12:48)
[2016-07-05] MEDS: HYDROcodone/APAP 10 MG/325 MG (LORTAB) TAB PO PRN ×2 (07:56→12:47)
[2016-07-05] MEDS: DICLOFENAC 1% GEL 100 GM (VOLTAREN) TUBE TOP SCH ×2 (07:57→12:49)
[2016-07-05] MEDS: ORPHENADRINE 100 MG PO SCH (07:57)
--- NOTE | 2016-07-05 08:30 | Progress Note (SOAP) ---
Subjective Subjective/Events-last exam patient feeling is doing better. Patient gets around without a walker. Ration still has trouble walking a straight line. Patient has shoulder pain from tear Objective Exam Vital Signs Date Time Temp Pulse Resp B/P Pulse Ox O2 Delivery O2 Flow Rate FiO2 07/05/16 06:21 97.6 60 20 108/66 96 Room Air 07/04/16 20:10 Room Air 07/04/16 18:53 97.9 59 16 131/83 97 Room Air 07/04/16 09:00 Room Air I & O 07/05/16 07:00 Intake Total 1400 ml Balance 1400 ml Capillary Refill : General Appearance: No Apparent Distress WD/WN HEENT: Normal ENT Inspection Neck: Full Range of Motion Normal Inspection Respiratory: Chest Non Tender Lungs Clear Normal Breath Sounds No Accessory Muscle Use No Respiratory Distress Cardiovascular: Regular Rate, Rhythm No Murmur Assessment/Plan Assessment/Plan Assess & Plan/Chief Complaint alcohol poisoning. Acute encephalopathy. Elevated liver enzymes. Acute respiratory failure with hypoxemia and hypercapnia. Sepsis. Aspiration pneumonia. History of depression. Right shoulder pain. . . Alcohol poisoning. Acute encephalopathy. Elevated liver enzymes resolved. Acute respiratory failure resolved. Hypoxemia resolved. . 07/04. Acute encephalopathy. Alcohol poisoning. Elevated liver enzymes. Acute respiratory failure. Patient doing good with PT. Patient doing more by himself. Right shoulder pain but has care of their. . 06/1016. Hospital placement. Acute encephalopathy. Elevated liver enzymes. . Patient still has trouble walking a straight line. Patient feels he has improved much Diagnosis/Problems: Clinical Quality Measures DVT/VTE Risk/Contraindication: Risk Factor Score Per Nursin RFS Level Per Nursing on Admit: 1=Low/No VTE PPX CORDELL ZAVALA DO Jul 05, 2016 08:30
--- NOTE | 2016-07-05 08:48 | PM & R (SOAP) Progress Note ---
Subjective Subjective/Events-last exam Patient was seen in his room this AM Has progressed well pain control adequate Objective Exam Last Set of Vital Signs Vital Signs Date Time Temp Pulse Resp B/P Pulse Ox O2 Delivery O2 Flow Rate FiO2 07/05/16 06:21 97.6 60 20 108/66 96 Room Air Capillary Refill : I&O Intake and Output 07/05/16 00:00 Intake Total 1300 ml Balance 1300 ml Intake Oral 1300 ml # Voids 8 # Bowel Movements 1 General: Alert, Oriented X3, Cooperative, No Acute Distress HEENT: Atraumatic, PERRLA, EOMI, Mucous Memb Moist/[place] Neck: Supple, No JVD Lungs: Clear to Auscultation Heart: Regular Rate Abdomen: Normal Bowel Sounds, Soft, No Tenderness Extremities: No Edema Neuro: Other (Tender rt shoulder with Limited AROM in flex and abdustion) Assessment/Plan Assessment General debil secondary to encephalopathy related ETOH intoxication. RT Rotator cuff tear dizziness multifactorial Plan Discharge today to home with family in [place] F/U with [facility] for counseling and with PCP and Ortho in [facility] See orders EDUARDO TOM MD Jul 05, 2016 08:48
--- NOTE | 2016-07-05 10:30 | Therapy Team Discharge Summary ---
Therapy Discharge Summary Discharge Recommendations Date of Discharge Therapy D/C Recommendations: Home w/ Family Support Physical Therapy Patient came to rehab following alcoholic encephalopathy and difficulty walking. Upon admission patient performed bed mobility with mod I and transfers with SBA, ambulated 500' without an assistive device with SBA, and could go up and down 4 steps using 2 handrails with CGA. Patient has been performing gait training, balance and endurance training, functional strengthening, and education. Patient has not met all of his assisted goals yet because he is not mod I with transfers or ambulation yet. Now, patient performs bed mobility with mod I, transfers with SBA, ambulates 1200' with SBA, and can go up and down 12 steps using 1 handrail with SBA. Patient's Nguyen score increased from 41/56 to 43/46. Patient is being discharged from this facility today and will be discharged from PT at this time. PT Shelter Goals Technician Preventative Medicine Goals PT Shelter Goals Time Frame: Jul 23, 2016 Transfers (B,C,W/C) (FIM): 6 Roll Left to Right (QC): 6 (met) Sit to Lying (QC): 6 (met) Lying-Sitting on Side/Bed(QC): 6 (met) Sit to Stand (QC): 6 Car Transfer (QC): 4 Does the Patient Walk: Yes Gait (FIM): 6 Distance: 600' Walk 10 feet (QC): 6 Walk 10ft-Uneven Surface(QC): 6 Walk 50ft with 2 Turns (QC): 6 Walk 150 ft (QC): 6 Gait Assistive Device: Cane Single Point Stairs (FIM): 5 (met) # of Steps: 12 (mt) 1 Step (curb) (QC): 4 4 Steps (QC): 4 (met) 12 Steps (QC): 4 (met) Stairs Level Of Assist: 5 (met) Picking up an Object (QC): 4 (mt) OT Shelter Goals Technician Preventative Medicine Goals Time Frame: Jul 23, 2016 Eating (FIM): 6 (met 07/04/16) Eating (QC): 6 (6-met) Oral Hygiene (QC): 6 (6-met) Grooming(FIM): 6 (met 07/04/16) Bathing(FIM): 6 (met 07/04/16) Shower/Bathe Self (QC): 6 (6-met) Upper Body Dressing(FIM): 6 (met 07/04/16) Upper Body Dressing (QC): 6 (6-met) Lower Body Dressing(FIM): 6 (met 07/04/16) Lower Body Dressing (QC): 6 (6-met) On/Off Footwear (QC): 6 (6-met) Toileting(FIM): 6 (met 07/04/16) Toileting Hygiene (QC): 6 (6-met) Toilet/Commode Transfer(FIM): 6 (met 07/04/16) Toilet/Commode Transfer (QC): 6 (6-met) Shower Transfer(FIM): 6 (6-met) Comprehension(FIM): 5 (MET) Expression (FIM): 5 (MET) Social Interaction(FIM): 5 (MET) Problem Solving(FIM): 5 (MET) Memory(FIM): 5 (MET) Additional Goals: 1-Demonstrate ADL Tasks, 2-Verbalize Understanding, 3- ImproveStrength/Claudy 1=Demonstrate adherence to instructed precautions during ADL tasks. 2=Patient will verbalize/demonstrate understanding of assistive devices/ modifications for ADL. 3=Patient will improve strength/tolerance for activity to enable patient to perform ADL's. Speech Technician Preventative Medicine Goals Technician Preventative Medicine Goals 1. The patient will demonstrate improved cognition for increased function and safety with ADL's in the least restrictive setting. Time Frame: Three Weeks Comprehension: 5 (MET) Expression: 5 (MET) Social Interaction: 5 (MET) Problem Solvin (MET) Memory: 5 (MET) MATTHEW EUGENE PT Jul 05, 2016 10:30
--- NOTE | 2016-07-05 13:53 | Therapy Team Discharge Summary ---
Therapy Discharge Summary Discharge Recommendations Date of Discharge Therapy D/C Recommendations: Home w/ Family Support Occupational Therapy Pt admitted to ARU secondary following acute hospitalization for encephalopathy. On admission pt required SBA for ADLs and transfers. Skilled OT intervention focused on ADL training, transfers, strengthening, and safety education. Pt made good progress with therapy and by discharge is completing basic ADLs and transfers with modified independence. Pt has met all OT LTG. Pt is discharging this date, so will d/c ARU OT at this time. PT Amf Mechanic Goals Alf Goals PT Alf Goals Time Frame: Jul 23, 2016 Transfers (B,C,W/C) (FIM): 6 Roll Left to Right (QC): 6 (met) Sit to Lying (QC): 6 (met) Lying-Sitting on Side/Bed(QC): 6 (met) Sit to Stand (QC): 6 Car Transfer (QC): 4 Does the Patient Walk: Yes Gait (FIM): 6 Distance: 600' Walk 10 feet (QC): 6 Walk 10ft-Uneven Surface(QC): 6 Walk 50ft with 2 Turns (QC): 6 Walk 150 ft (QC): 6 Gait Assistive Device: Cane Single Point Stairs (FIM): 5 (met) # of Steps: 12 (mt) 1 Step (curb) (QC): 4 4 Steps (QC): 4 (met) 12 Steps (QC): 4 (met) Stairs Level Of Assist: 5 (met) Picking up an Object (QC): 4 (mt) OT Alf Goals Amf Mechanic Goals Time Frame: Jul 23, 2016 Eating (FIM): 6 (met 07/04/16) Eating (QC): 6 (6-met) Oral Hygiene (QC): 6 (6-met) Grooming(FIM): 6 (met 07/04/16) Bathing(FIM): 6 (met 07/04/16) Shower/Bathe Self (QC): 6 (6-met) Upper Body Dressing(FIM): 6 (met 07/04/16) Upper Body Dressing (QC): 6 (6-met) Lower Body Dressing(FIM): 6 (met 07/04/16) Lower Body Dressing (QC): 6 (6-met) On/Off Footwear (QC): 6 (6-met) Toileting(FIM): 6 (met 07/04/16) Toileting Hygiene (QC): 6 (6-met) Toilet/Commode Transfer(FIM): 6 (met 07/04/16) Toilet/Commode Transfer (QC): 6 (6-met) Shower Transfer(FIM): 6 (6-met) Comprehension(FIM): 5 (MET) Expression (FIM): 5 (MET) Social Interaction(FIM): 5 (MET) Problem Solving(FIM): 5 (MET) Memory(FIM): 5 (MET) Additional Goals: 1-Demonstrate ADL Tasks, 2-Verbalize Understanding, 3- ImproveStrength/Claudy 1=Demonstrate adherence to instructed precautions during ADL tasks. 2=Patient will verbalize/demonstrate understanding of assistive devices/ modifications for ADL. 3=Patient will improve strength/tolerance for activity to enable patient to perform ADL's. Speech Amf Mechanic Goals Alf Goals 1. The patient will demonstrate improved cognition for increased function and safety with ADL's in the least restrictive setting. Time Frame: Three Weeks Comprehension: 5 (MET) Expression: 5 (MET) Social Interaction: 5 (MET) Problem Solvin (MET) Memory: 5 (MET) ELENA LAU OT Jul 05, 2016 13:53
--- NOTE | 2016-07-26 12:38 | DISCHARGE SUMMARY ---
DATE OF ADMISSION: 07/01/2016 DATE OF DISCHARGE: 07/05/2016 HISTORY OF PRESENT ILLNESS: The patient is a 40-year-old male who had been independent and living with family in [facility], who was admitted to [facility] due to acute respiratory failure, found to be secondary to ethanol intoxication. The patient underwent withdrawal protocol. He was weaned from O2 became more alert. He was referred to Inpatient Rehabilitation Unit at [facility] prior to discharge home with family due to decline in his functional independence. He also had complaints of right shoulder pain. An MRI revealed a right partial rotator cuff tear at OSH. He was also noted to be hypokalemic and had electrolyte disturbance and correction was provided. PAST MEDICAL HISTORY: 1. Hypertension. 2. Ethanol abuse. SOCIAL HISTORY: Works intermittently, lives with his family and [facility]. He has [place] Medicaid. HX of [facility] MEDICAL COURSE: The patient was followed by Dr. Smith and Dr. Peacock while on the rehab unit. The patient was counseled by Dr. Ryan of behavioral health services. His impression was alcohol use disorder, and unspecified anxiety disorder. Dr. Ryan noted that the patient had been in alcohol rehab services in the past through [facility] in [place] and that was court ordered as part of his parole. He states that he went to rehab in [facility] in the past but did not feel that it was helpful. He has had 3 driving while intoxicated convictions in the past, the last one occurred in 2010 and he did not get out at [facility] until 10/31/2015. This was due to his repeated driving while intoxicated convictions. The patient was provided with symptomatic relief for his right rotator cuff injury. It was recommended that he have follow-up with an orthopedist in [place] regarding that. His CBC on 07/02 showed WBC 7.8, hemoglobin and hematocrit 14.5/43, platelet count 247,000. Chemistry on 07/02 showed serum potassium 3.5, chloride 110. He was provided with replacement. He was provided with Voltaren gel for right shoulder pain. He continued to utilize generic Lortab for pain control as well and ibuprofen. He continued on Zoloft and Seroquel, as well as trazodone. REHABILITATION COURSE: He progressed well with his therapies. He had increased strength and endurance. OT notes that upon admission, the patient requires standby assist for ADLs and transfers. Upon discharge, he was modified independent for her bed mobility, transfers, and ambulation with extra time. PT notes upon admission, the patient performed bed mobility modified independent, transfers standby assist, could ambulate more than 100 feet with standby assist without a gait aide. Upon discharge the patient is modified independent for bed mobility, standby assist for transfers, and ambulation 1200 feet with standby assist. The patient's Nguyen score increased from 41 to 43/46. Speech therapy notes upon admission, the patient demonstrated mild cognitive deficits in the regions of memory and attention. The patient demonstrated high accuracy with all exercises and met all goals initially placed by the clinician and additional speech therapy services were not warranted post discharge. DISCHARGE INSTRUCTIONS: The patient will have follow-up with PCP and orthopedics in [place], [place]. Follow-up with [facility] for further counseling. Continue current diet. DISCHARGE MEDICATIONS: 1. Voltaren topically q.i.d. 2. Lortab generic 10/325, 1 tablet p.o. q.4 hours p.r.n. moderate pain. 3. Ibuprofen 800 mg p.o. every 8 hours p.r.n. lesser pain. 4. Catapres 0.1 mg p.o. t.i.d. 5. Toprol 50 mg p.o. daily. 6. Orphenadrine 100 mg p.o. b.i.d. 7. Seroquel 100 mg p.o. at bedtime. 8. Zoloft 100 mg p.o. daily. 9. Trazodone 100 mg p.o. at bedtime. 10. Tramadol was discontinued upon discharge. DISCHARGE DIAGNOSES: 1. Rehabilitation ambulatory dysfunction secondary to encephalopathy due to alcohol intoxication/abuse, improving. 2. Alcohol abuse. 3. Difficulty with walking. 4. Right partial rotator cuff tear. 5. Hypokalemia, corrected. 6. Hypertension, controlled with medication. 7. Tobaccoism, currently abstaining. CONDITION AT DISCHARGE: Improved and stable. PROGNOSIS: Rehab prognosis appears good for continued improvement at home assuming he stays on his medications and seeks appropriate medical and behavioral health follow-up and continues to abstain from alcohol usage. Job ID: [id number] Dictated Date: 07/25/2016 08:58:23 Staffing Rn Date: 07/26/2016 12:24:41/jaik MTDD
== END 2016-07-05 16:27 | disposition home or self-care (01) | DRG 57 ==
PROVIDERS: ADMIT Physical Medicine & Rehabilitation; ATTEND Physical Medicine & Rehabilitation
DX: G31.2 Degeneration of nervous system due to alcohol (principal); F10.10 Alcohol abuse, uncomplicated; R26.2 Difficulty in walking, not elsewhere classified; M75.111 Incomplete rotator cuff tear or rupture of right shoulder, not specified as traumatic; E87.6 Hypokalemia; I10 Essential (primary) hypertension; F17.210 Nicotine dependence, cigarettes, uncomplicated
CPT/HCPCS: 36415; 80053; 85025